=== PATIENT | female | born 1970 | race African-American/Black ===

== ENCOUNTER 2017-08-28 13:19 | Inpatient (IN) | payer BC ==
[2017-08-28] MEDS ORDERED: Ondansetron HCl/PF 4 MG/2 ML Vial ONE (13:51)
[2017-08-28 14:02] LABS: #Eosinphils 0.1 thou/uL (0.0-0.7); #Lymphocytes 2.4 thou/uL (1.20-3.40); #Monocytes 0.5 thou/uL (0.11-0.59); #Neutrophils 5.7 thou/uL (1.40-6.50); %Basophils 0.5 % (0.0-1.0); %Eosinophils 1.6 % (0.0-10.0); %Lymphocytes 27.2 % (21.0-51.0); %Monocytes 6.1 % (0.0-10.0); Mean Platelet Volume 8.1 fL (7.4-10.4); Red Blood Cell (RBC) Count 4.39 mill/uL (4.20-5.40); White Blood Cell (WBC) Count 8.8 thou/uL (4.8-10.8)
[2017-08-28 14:10] LABS: Prothrombin Time 13.1 SEC (12.0-14.7)
[2017-08-28] MEDS ORDERED: ISOVUE-370 76%-LOCM 1 ML ONE (14:11)
[2017-08-28 14:25] LABS: ALT (SGPT) 13 U/L (8-55); AST (SGOT) 12 U/L (5-34); Alkaline Phosphatase 67 U/L (40-150); Anion Gap 16 mmol/L (10-20); BUN (Urea Nitrogen) 14 mg/dL (7.0-18.7); Bilirubin, Total Less than 0.2 mg/dL (0.2-1.2); Calc. Creatinine Clearance 0 mL/min (70-130); Calcium 9.1 mg/dL (7.8-10.44); Carbon Dioxide 19 mmol/L (22-29); Chloride 104 mmol/L (98-107); Estimated GFR-MDRD 65; Globulin 3.7 g/dL (2.4-3.5); Protein, Total 7.2 g/dL (6.0-8.3)
[2017-08-28 14:30] LABS: Troponin I Less than 0.010 ng/mL (< 0.028)
--- NOTE | 2017-08-28 14:34 | CT ---
CT OF BRAIN PERFORMED WITHOUT CONTRAST ENHANCEMENT: History: Syncopal episode. Comparison: 10-29-15 FINDINGS: Ventricular and cisternal system is within normal limits. Decreased attenuation of the periventricul ar white matter was noted on the prior exam. Slightly more prominent focus of decreased attenuation directly adjacent to the right frontal horn anterior to the caudate nucleus region. This appears mor e prominent than on the prior exam and could represent a small subacute infarct. MRI would be helpfu l in further assessment. IMPRESSION: 1. Chronic white matter change. 2. Focus of decreased attenuation adjacent to the right frontal horn. I cannot exclude this represen ting a small acute to subacute infarct. MRI would be helpful in assessment. POS: [facility]
[2017-08-28] MEDS ORDERED: Aspirin 325 MG TAB ONE (15:54)
--- NOTE | 2017-08-28 16:31 | CT ---
EXAM: CT ANGIOGRAM OF THE [place] CT PERFUSION 08/28/17 HISTORY: Patient collapsed but did not hit head. Diabetic patient. Nausea. Hyperglycemia. Loss of consciousne ss. Altered mental status. Evaluate for posterior circulation syndrome. COMPARISON: 09/29/15. CORRELATION: Brain MRI 09/28/15. TECHNIQUE: CT angiogram of the [place] is performed in the axial plane. Sagittal and coronal three dim ensional reformatted images are submitted for interpretation. CT perfusion imaging is performed. FINDINGS: Limited evaluation for subarachnoid blood due to the presence of intra-arterial contrast. Cortical g ray-white matter differentiation is preserved. Ventricles and sulci are patent and symmetric. Chroni c white matter change in the right frontal periventricular white matter. There are hypodensities in the midline of the vaibhav and posterior left cerebellar hemisphere. The kyra whitney lesion is not appreciated on the prior CT or MRI. Indeterminate infarct may be present. Better interrogation with MRI is recommended. Abnormal signal in the anterior right vaibhav/cerebral peduncle in noted on prior MRI. CT ANGIOGRAM: There is symmetric enhancement and luminal diameter of the distal cervical and intracranial internal carotid arteries. There is symmetric enhancement and luminal diameter of the A1 and M1 segments. Sy mmetric enhancement and luminal diameter of the proximal A2 segments and proximal MCA branches. The distal cervical and intracranial vertebral arteries are essentially symmetric. Both PICA artery origins are unremarkable. Both vertebral arteries supply a normal basilar artery. No significant stephanie nosis. There is symmetric signal intensity of the P1 segments. Throughout the [place], no evidence of high grade stenosis or vascular occlusion. CT PERFUSION: There is appropriate blood flow and blood volume. No evidence of increased mean transit time. The ax ial IRS images do not demonstrate any abnormal signal. IMPRESSION: 1. Unremarkable CT angiogram of [place]. No evidence of vascular occlusion or signific ant stenosis. 2. Unremarkable CT perfusion. No evidence of ischemia/at risk brain or a completed infarct. 3. Hypodensity in the midline of the vaibhav, not appreciated on prior CT or prior MRI. MRI if cli nically warranted. The results of the study discussed with Aline Trujillo, 08/28/17 at 3:33 p.m. Code CR POS: [facility]
[2017-08-28] MEDS ORDERED: Dextrose 50% Abboject 50 ML SYRINGE SLOW IVP PRN (17:52)
[2017-08-28] MEDS ORDERED: Dextrose 5% in Water 1,000 ML IV PRN (17:52)
[2017-08-28] MEDS ORDERED: Insulin Regular 300 UNITS/3 ML VIAL SC PRN (17:52)
[2017-08-28] MEDS ORDERED: ALPRAZolam 0.5 MG TAB PO SCH ×2 (18:15→19:45)
[2017-08-28] MEDS ORDERED: Non-Formulary Item 1 EACH (Levemir Flexpen [Levemir Flexpen] 15 UNIT) SC SCH (21:00)
[2017-08-28] MEDS ORDERED: Atorvastatin Calcium 20 MG TAB PO SCH (21:00)
--- NOTE | 2017-08-28 21:22 | HP ---
DATE OF ADMISSION: 08/28/2017 TIME: 1800. HISTORY OF PRESENT ILLNESS: This is a 47-year-old black female, who presents with an altered mental status. The patient has a history of diabetes, hypertension, hyperlipidemia, and noncompliance. I n 09/2015, the patient underwent an infarct of her pontine area of her brain. Prior to that and shira n following that, the patient has rarely has seen her physicians. The patient was relatively stable until early this morning when she developed a headache. This became progressively worse throughout the day and about 11:00 a.m. became severe. At 12:45, she fainted in the classroom and EMS was anibal led. She was talking and answering questions appropriately at that time. However, she states that she has had a persistent headache throughout the day. There is no reported nausea or vomiting. The patient is getting over the case of strep presently on Levaquin. The patient does go to the [facility] for her urgent care needs. She last saw me approximately 6 months ago. She does not complai n of any weakness of her extremities. She has no chest pain at this time nor shortness of breath, n ausea, or vomiting. She has no visual changes. PAST MEDICAL HISTORY: Hypertension, hyperlipidemia, diabetes, history of pontine infarct 09/2015. She also had an echo in 2014 revealing concentric LVH. PAST SURGICAL HISTORY: Include hysterectomy and x2. FAMILY HISTORY: Father at 79, diagnoses of diabetes, hypertension, and CVA. Mother at 67 with colon cancer and maternal grandmother with some unknown cancer. SOCIAL HISTORY: She does not smoke. She does not drink. 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 She is . She has 2 sons. Jeferson is a senior David Pradhan, who attends [employer] majoring in Kinesiology and theatre. MEDICATIONS: Include Levemir 35 units q.12, Lisinopril/HCTZ 20/25 q.a.m., Glucovance 5/500 one p.o. daily, Plavix 75 daily, sertraline 50 mg daily, Victoza 18 mcg every week. ALLERGIES: VICODIN which causes hallucinations. REVIEW OF SYSTEMS: As above. PHYSICAL EXAMINATION: VITAL SIGNS: See ER sheet. GENERAL: In no acute distress at this time. She does complain of a mild headache. HEENT: Pupils equal, reactive. Extraocular movements intact. TM, nose, throat clear. NECK: Supple, no bruits. HEART: Regular rate and rhythm. LUNGS: Clear. ABDOMEN: Soft, nontender. EXTREMITIES: With no edema. NEUROLOGIC: Cranial nerves II through XII appeared intact. Normal sensory, motor bilaterally. DTR s are symmetrical. LABORATORY DATA: CT head and neck and CT angio unremarkable. CT of the brain shows chronic white m atter changes and focus of decreased attenuation in the right frontal horn, cannot exclude subacute infarct. ASSESSMENT: 1. Recurrent pontine infarct. 2. Noncompliance. 3. Diabetes. 4. Hypertension. 5. Hyperlipidemia. 6. History of concentric left ventricular hypertrophy and aortic insufficiency. PLAN: 1. Consult Dr. Patterson. 2. Echocardiogram transthoracic. 3. MRA of the brain. 4. Insulin sliding scale. 5. Resume home medications. 6. A long discussion again about compliance. The patient cannot get to the [facility] for h er routine medical care.
[2017-08-28] MEDS: Insulin Detemir 100 UNITS/ML 15 UNITS in Pre-Filled Syringe 1 EACH SC SCH (21:36)
[2017-08-29] MEDS ORDERED: Acetaminophen 325 MG TAB PO PRN (08:12)
[2017-08-29] MEDS ORDERED: Acetaminophen/Codeine 30-300mg Tablet PO PRN (08:13)
--- NOTE | 2017-08-29 08:58 | PRG ---
DATE OF SERVICE: 08/29/2017 SUBJECTIVE: The patient complains of a persistent headache this morning. No nausea or vomiting. H usband is present. He is not aware that she has not been seeing me in the office. He is quite surp rised. The patient is having trouble ambulating. She is unsteady on her feet and requires assistan ce to the bathroom. OBJECTIVE: VITAL SIGNS: Temperature 97.8, pulse 78, respirations 18, pulse ox 99, blood pressure 196/96, avera ge blood pressure 155/88, morning medications pending. HEENT: Pupils equal, reactive. Extraocular movements intact. HEART: Regular rate and rhythm. LUNGS: Clear. ABDOMEN: Soft. EXTREMITIES: With no edema. Normal rapid alternating movements. Normal jtdupp-yi-osci. May have decreased strength on the left side. NEURO: Patient conversing without difficulty. Answers all questions appropriately. LABORATORY: Electrolytes normal. Blood sugar 234, 135 this morning. Cholesterol 110, triglyceride s 169. ASSESSMENT: 1. Cerebrovascular accident, rule out recurrent pontine infarct. 2. Noncompliance. 3. Weakness/left-sided weakness. 4. Diabetes. 5. Hypertension. 6. Hyperlipidemia. 7. History of concentric left ventricular hypertrophy with aortic insufficiency. PLAN: 1. Await Dr. Patterson's consult. 2. Echocardiogram this morning. Possible Cardiology consult depending on results. 3. MRI of the brain pending. 4. Continue insulin sliding scale. 5. Maintain blood pressures in the 150s/80s range. 6. Long discussion about compliance with who is quite surprised. I do not recommend the pa julissa go to the [facility] for routine care. 7. PT, OT consult. 8. Tylenol and [place] p.r.n. for headache.
[2017-08-29] MEDS ORDERED: Aspirin 325 mg Enteric Coated Tablet PO SCH (09:00)
[2017-08-29] MEDS ORDERED: Lisinopril/Hydrochlorothiazide 20/25 mg Tablet PO SCH (09:00)
[2017-08-29] MEDS ORDERED: Clopidogrel Bisulfate 75 MG TAB PO SCH (09:00)
[2017-08-29] MEDS: Insulin Detemir 100 UNITS/ML 15 UNITS in Pre-Filled Syringe 1 EACH SC SCH (09:07)
[2017-08-29 11:03] VITALS: BMI 38.0
--- NOTE | 2017-08-29 12:57 | MRI ---
MRI OF THE BRAIN WITHOUT CONTRAST: History: Syncope, stroke. Technique: Multiplanar, multisequence MR images were obtained of the brain without contrast. FINDINGS: There is scattered foci of high FLAIR signal in the subcortical and periventricular white matter, li radha secondary to small vessel ischemic disease. There is a similar process also seen in the vaibhav. N o restricted diffusion is seen to suggest an acute infarction. There is no evidence of hydrocephalus , intracranial hemorrhage, or extraaxial fluid collection. The expected flow voids are present. The corpus callosum, pituitary, and craniocervical junction are unremarkable. Calvarium and overlying soft tissues are unremarkable. The visualized paranasal sinuses and mastoid air cells are well aerated. IMPRESSION: Small vessel ischemic disease without acute intracranial abnormality. POS: [facility]
[2017-08-29 16:06] VITALS: BP 167/89; TEMP 98.4
--- NOTE | 2017-08-29 23:10 | DIS ---
DISCHARGE DIAGNOSES: 1. Altered mental status. 2. Acute intractable migraine. 3. Noncompliance. 4. Diabetes. 5. Hypertension. 6. Hyperlipidemia. 7. Morbid obesity. DISCHARGE MEDICATIONS: Aspirin 325 p.o. daily, lisinopril/HCTZ of 20/25 every morning, metoprolol 1 00 p.o. daily, Zoloft 50 daily, amlodipine 5 mg p.o. daily, aspirin 325 p.o. daily, Plavix 75 mg ese ly, Glucovance 5/500 one p.o. every morning, Levemir 15 units every evening, Victoza 1.8 every week. Follow up with Dr. Torey Davey in 1 week. BRIEF HISTORY: This is a 47-year-old black female with a history of diabetes, hypertension, and hyp erlipidemia, who presented with an altered mental status. She was doing well until the morning of a dmission, she developed a headache. This became progressively worse throughout the day, became very severe approximately 11:00 a.m. and at 12:45 p.m., she fainted in the classroom and EMS was [facility]. She regained her consciousness and was talking and answering questions appropriately. She states that she had a persistent headache throughout the day. There was no nausea or vomiting. HOSPITAL COURSE: The patient was placed on an insulin sliding scale. Her medications were resumed. Her blood pressures were monitored. They fluctuated from 140s to 180 over 70s to 90s. Temperatur e 98.4, pulse 86, pulse oximetry is 98. Dr. Curiel was consulted. An MRI was obtained, which was found to be unremarkable for any acute changes. Patient has a long history of noncompliance. Pamela dixon last seen her 6 months previously. She goes to [facility] where there is no copay. However, the y did not do medication adjustments. I strongly encouraged her and herself to see me on a r egular basis. I have instructed him to follow up with me in 1 week. An echocardiogram was repeated at this visit, which was markedly improved from her previous echocardiogram a few years ago. Her e jection fraction is 60% to 65% with a normal right ventricular size, [id number] aortic regurgi tation was noted. Her brain MRI did show small vessel ischemic disease without any acute abnormalit ies. No evidence of acute infarction noted.
--- NOTE | 2017-08-30 01:55 | CON ---
DATE OF CONSULTATION: 08/30/2017 CONSULTING PHYSICIAN: Hospitalist Service. IMPRESSION: 1. Confusional migraine. 2. Diabetes. 3. Hypertension. PLAN: Discharged home on her prior medications. HISTORY OF PRESENT ILLNESS: Ms. Huang is a 47-year-old black female with a past history of hypert ension, diabetes and migraine headaches. She was at work when she started experiencing fairly sever e headache. She apparently lost consciousness briefly and went to the floor. She awoke on the floo r and recalls being transported to the hospital, she felt confused during this interval of time. Sh destiny was given some Tylenol in the emergency room and her headache subsided. She has not had anything quite like this in the past. Her workup since admission includes a normal MRI of the brain without any acute ischemic changes, CTA of the brain, laboratory studies and an echocardiogram. She had justice ewhat elevated blood glucose related to her diabetes, but otherwise everything has been fine. She d enies any other ongoing problems today. PAST MEDICAL HISTORY: As listed above. ALLERGIES: HYDROCODONE. SOCIAL HISTORY: No tobacco or illicit drug use. FAMILY HISTORY: Noncontributory. REVIEW OF SYSTEMS: Otherwise, negative. PHYSICAL EXAMINATION: GENERAL: She is a somewhat overweight, middle-aged woman in no distress. VITAL SIGNS: Have been stable. She is afebrile. HEENT: Pupils are equal and reactive. Conjunctivae clear. NECK: Supple. EXTREMITIES: No cyanosis. NEUROLOGIC: She is alert and appropriate. Her speech is fluent and clear. Her exam is nonfocal. SUMMARY: Given the constellation of symptoms and lack of findings on imaging, I suspect she had a c onfusional migraine. I would be happy to follow up with her in the office.
[2017-08-30 10:22] LABS: U1RNP/snRNP IGG Autoabs 3.6 AI (0.0-0.9)
== END 2017-08-29 17:51 | disposition home or self-care (01) | DRG 103 ==
LOC: ERS 13:19 → 2SE 16:43
PROVIDERS: ADMIT Family Medicine; ATTEND Family Medicine
DX: G43.919 Migraine, unspecified, intractable, without status migrainosus (principal); E66.01 Morbid (severe) obesity due to excess calories; I10 Essential (primary) hypertension; R41.82 Altered mental status, unspecified; R55 Syncope and collapse; Z91.14 Patient's other noncompliance with medication regimen; Z86.73 Personal history of transient ischemic attack (TIA), and cerebral infarction without residual deficits; R53.1 Weakness; E78.5 Hyperlipidemia, unspecified; Z68.37 Body mass index [BMI] 37.0-37.9, adult; E11.9 Type 2 diabetes mellitus without complications; I35.1 Nonrheumatic aortic (valve) insufficiency
CPT/HCPCS: 0042T; 36415; 36416; 70450; 70496; 70551; 80053; 80061; 82553; 82607; 84484; 85025; 85610; 85652; 86038; 86780; 93005; 93306; 96361; 96374; 96375; G8978-GP-CL; G8979-GP-CJ; G8987-GO-CJ; G8988-GO-CH; G8996-GN-CH; G8997-GN-CH; G8998-GN-CH; J1815; J2270; J2405

== ENCOUNTER 2018-10-18 22:27 | Inpatient (IN) | payer BC ==
[2018-10-18 22:57] LABS: #Eosinphils 0.2 thou/uL (0.0-0.7); #Monocytes 0.7 thou/uL (0.11-0.59); #Neutrophils 6.6 thou/uL (1.40-6.50); %Basophils 0.3 % (0.0-1.0); %Eosinophils 1.5 % (0.0-10.0); %Lymphocytes 34.5 % (21.0-51.0); %Monocytes 6.3 % (0.0-10.0); %Neutrophils 57.4 % (42.0-75.0); Hemoglobin 14.6 g/dL (12.0-16.0); Mean Corpuscular HGB CONC 32.7 g/dL (32.0-36.0); Mean Corpuscular Hemoglobin 29.3 pg (27.0-31.0); Mean Corpuscular Volume 89.9 fL (78.0-98.0); Mean Platelet Volume 8.9 fL (7.4-10.4); Platelet Count 304 thou/uL (130-400); Red Blood Cell (RBC) Count 4.99 mill/uL (4.20-5.40); White Blood Cell (WBC) Count 11.4 thou/uL (4.8-10.8)
[2018-10-18] MEDS ORDERED: Diazepam 5 MG TAB ONE (23:05)
[2018-10-18] MEDS ORDERED: Ondansetron PF 4 MG/2 ML Vial ONE (23:05)
[2018-10-18 23:18] LABS: Anion Gap 17 mmol/L (10-20); BUN (Urea Nitrogen) 16 mg/dL (7.0-18.7); Calc. Creatinine Clearance 0 mL/min (70-130); Calcium 9.5 mg/dL (7.8-10.44); Carbon Dioxide 19 mmol/L (22-29); Chloride 103 mmol/L (98-107); Estimated GFR-MDRD 59; Glucose 415 mg/dL (70-105); Potassium 4.3 mmol/L (3.5-5.1); Sodium 135 mmol/L (136-145)
[2018-10-18] MEDS ORDERED: Lorazepam 2 MG/ML VIAL ONE (23:55)
[2018-10-19] MEDS ORDERED: Meclizine HCl 25 MG TAB ONE (00:37)
[2018-10-19] MEDS ORDERED: Diazepam 5 MG TAB PO PRN (03:37)
[2018-10-19] MEDS ORDERED: Ondansetron PF 4 MG/2 ML Vial IVP PRN (03:38)
[2018-10-19] MEDS ORDERED: Sodium Chloride 0.9% 1,000 ML IV SCH (03:38)
[2018-10-19] MEDS ORDERED: Acetaminophen 325 MG TAB PO PRN (03:38)
[2018-10-19] MEDS ORDERED: Ondansetron ODT 4 MG TAB SL PRN (03:38)
[2018-10-19] MEDS: Meclizine HCl 25 MG TAB PO SCH ×2 (05:56→13:36)
[2018-10-19] MEDS ORDERED: Dextrose 50% Abboject 50 ML SYRINGE SLOW IVP PRN (08:19)
[2018-10-19] MEDS ORDERED: Dextrose 5% in Water 1,000 ML IV PRN (08:19)
[2018-10-19] MEDS ORDERED: Enoxaparin Sodium 40 MG/0.4 ML SYRINGE SC SCH (09:00)
[2018-10-19 09:06] LABS: Hemoglobin A1c 13.9 % (4.0-6.0)
[2018-10-19] MEDS: Insulin Glargine 30 UNITS in Pre-Filled Syringe 1 EACH SC SCH (09:40)
[2018-10-19] MEDS: Famotidine 20 MG TAB PO SCH ×2 (09:41→22:02)
[2018-10-19] MEDS: Clopidogrel Bisulfate 75 MG TAB PO SCH (09:41)
[2018-10-19] MEDS: Aspirin 81 mg Enteric Coated Tablet PO SCH (09:41)
[2018-10-19] MEDS: Lisinopril/Hydrochlorothiazide 20/25 mg Tablet PO SCH (09:42)
[2018-10-19] MEDS: Sodium Chloride 0.9% 1,000 ML IV SCH ×2 (09:43→14:37)
--- NOTE | 2018-10-19 10:32 | CT ---
PRELIMINARY REPORT/[facility]/EMERGENTY AFTER-HOURS PROCEDURE CT Head Without Intravenous Contrast CLINICAL HISTORY: 48 years old, female; Signs and symptoms; Dizziness; Patient HX: Er 21; F48 presents to ed with C/O s evere dizziness and nausea onset 1 hr ago. 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 Pt reports being seen in ed 1 week ago for dizziness but reports that it did not feel like this. TECHNIQUE: Axial computed tomography images of the head/brain without intravenous contrast. COMPARISON: No relevant prior studies available. FINDINGS: Normal brain morphology. Subtle small 2 mm hypodensity in the vaibhav seen in image 8. Hypodensities adjacent to the right frontal horn and right cerebellar hemisphere. Small round hypodensity in the left cerebellar hemisphere. Vasquez-white matter differentiation is preserved. No intracranial hemorrhage or hydrocephalus. No mass, mass effect or midline shift. No effacement of the cortical sulci and basal cisterns. Orbits are unremarkable. Paranasal sinuses are clear. Mastoid air cells are clear. No acute fracture. Soft tissues unremarkable. IMPRESSION: 1. Subtle small 2 mm hypodensity in the vaibhav. Differential includes lacunar infarct of indeterminate age versus artifact. 2. Small hypodensities adjacent to the right frontal horn and in the right cerebellar hemisphere like ly sequela of old prior vascular insults. 3. Small round hypodensity in the left cerebellar hemisphere possibly arachnoid granulation. 4. Recommend MRI to evaluate above findings. Thank you for allowing us to participate in the care of your patient. Dictated and Authenticated by: Edouard Ernst MD 10/19/2018 2:37 AM Central Time ([place] & [place]) FINAL REPORT CT BRAIN WITHOUT CONTRAST: Date: 10/19/18 FINDINGS/IMPRESSION: I agree with the preliminary report given by Melissa. Comparison is made with the CT scan of 08/28/17 and MRI of 08/29/17. Findings on today's exam are chr onic. No CT evidence of acute intracranial process is seen. POS: [facility]
[2018-10-19 11:12] LABS: Bilirubin Negative (Negative); Blood, Urine Trace (Negative); Glucose, Urine (Dipstick) >=1000 mg/dL (Negative); Leukocyte Negative (Negative); Nitrite Negative (Negative); Protein, Urine (Dipstick) Negative (Neg-Trace); Urobilinogen 0.2 mg/dL (0.2-1.0)
[2018-10-19 11:13] LABS: Clarity Clear (Clear)
[2018-10-19 11:21] LABS: Bacteria/HPF Rare-Few HPF (None Seen); RBC/HPF 0-3 HPF (0-3); Squamous Epithelial 0-3 HPF (0-3); WBC/HPF 0-3 HPF (0-3)
[2018-10-19 11:22] LABS: Hyaline Casts/LPF NONE SEEN LPF (0-3 Hyaline)
[2018-10-19] MEDS: HumaLOG 300 UNITS/3 ML VIAL SC PRN ×2 (11:35→22:11)
--- NOTE | 2018-10-19 13:52 | HP ---
DATE: 10/19/2018 HISTORY OF PRESENT ILLNESS: This is a 48-year-old black female with a history of diabetes, hypertens ion, hyperlipidemia and noncompliance who presents with dizziness. I last saw this patient in 7. She occasionally goes to the [facility]. She states that her blood sugars generally ru n over 300 on average. Her last check was approximately 2-3 weeks ago. Over the past 2 weeks, she h as complained of increasing nausea and vomiting, it became much worse last night with marked dizzines s. She did not complain of any chest pain or shortness of breath. She ran out of her insulin yester day. She reports no history of fever or other symptoms of cough, congestion or bladder infections. She does have a history of small ischemic vessel disease of her brain. She has been admitted in the past for TIAs. She is well aware of her noncompliance and her issues that are arising from her histo ry of noncompliance. I have discussed with her in the past at length about small vessel ischemic dis ease of her brain. She is well aware of the complications of uncontrolled and noncompliance with her diabetes. PAST MEDICAL HISTORY: Hypertension, hyperlipidemia, diabetes, history of pontine infarct in 09/2015. Echo in 2014 revealed concentric LVH. PAST SURGICAL HISTORY: Include hysterectomy and x2. FAMILY HISTORY: Father 79 with diabetes, hypertension and CVA. Mother with colon cancer. Maternal grandmother with some unknown cancer. SOCIAL HISTORY: She does not smoke. She does not drink. 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 She has 2 sons, Jeferson and Lorne. MEDICATIONS: Include Levemir 35 q.12 hours, lisinopril/hydrochlorothiazide 20/25 q.a.m., Glucovance 5/500 one p.o. daily, Plavix 75 daily, sertraline 50 mg daily, Victoza 18 daily. ALLERGIES: VICODIN. REVIEW OF SYSTEMS: As above. PHYSICAL EXAMINATION: VITAL SIGNS: Temperature 97.9, pulse 105, respiration rate 18, pulse ox 100%, blood pressure 151/80. GENERAL: The patient complains of dizziness. HEENT: Clear. HEART: Regular rate and rhythm. LUNGS: Clear. ABDOMEN: Soft. EXTREMITIES: No edema. NEUROLOGIC: She is morbidly obese. LABORATORY DATA: White count 11.4, H&H 14 and 44. Sodium 135, potassium 4.3, creatinine 1.19, BUN 1 6, glucose . ASSESSMENT: 1. Dizziness. 2. Noncompliance. 3. Uncontrolled diabetes. 4. Hypertension. 5. Hyperlipidemia. 6. History of pontine infarct. 7. History of altered mental status with small vessel ischemic disease noted. PLAN: 1. Discuss compliance again. 2. I informed patient that she needs to come see me in the office and not at the [facility] 3. Resume Levemir, lisinopril, Plavix, sertraline and aspirin. 4. Dietary consult. 5. Insulin sliding scale. 6. We will continue to follow the patient and try to control her blood sugar.
[2018-10-20] MEDS: Insulin Glargine 30 UNITS in Pre-Filled Syringe 1 EACH SC SCH (00:04)
[2018-10-20] MEDS: Sodium Chloride 0.9% 1,000 ML IV SCH ×2 (03:44→17:06)
[2018-10-20 05:57] LABS: #Eosinphils 0.1 thou/uL (0.0-0.7); #Lymphocytes 2.6 thou/uL (1.20-3.40); #Monocytes 0.4 thou/uL (0.11-0.59); #Neutrophils 3.3 thou/uL (1.40-6.50); %Basophils 0.8 % (0.0-1.0); %Eosinophils 1.7 % (0.0-10.0); %Lymphocytes 40.8 % (21.0-51.0); %Monocytes 5.7 % (0.0-10.0); Hemoglobin 13.6 g/dL (12.0-16.0); Mean Corpuscular Hemoglobin 28.1 pg (27.0-31.0); Mean Corpuscular Volume 90.6 fL (78.0-98.0); Mean Platelet Volume 8.7 fL (7.4-10.4); Platelet Count 275 thou/uL (130-400); RBC Distribution Width 12.2 % (11.5-14.5); Red Blood Cell (RBC) Count 4.82 mill/uL (4.20-5.40); White Blood Cell (WBC) Count 6.4 thou/uL (4.8-10.8)
[2018-10-20 06:07] LABS: Anion Gap 11 mmol/L (10-20); BUN (Urea Nitrogen) 10 mg/dL (7.0-18.7); Calc. Creatinine Clearance 132 mL/min (70-130); Calcium 8.7 mg/dL (7.8-10.44); Carbon Dioxide 22 mmol/L (22-29); Chloride 108 mmol/L (98-107); Estimated GFR-MDRD 90; Glucose 154 mg/dL (70-105); Potassium 3.7 mmol/L (3.5-5.1); Sodium 137 mmol/L (136-145)
--- NOTE | 2018-10-20 07:52 | PRG ---
DATE OF SERVICE: 10/20/2018 SUBJECTIVE: No complaints of any chest pain, shortness breath, nausea, vomiting. Her vertigo has re solved. She is feeling much better this morning. OBJECTIVE: VITAL SIGNS: Blood pressure 164/84, temperature 98.8, pulse 64, respirations 16, pulse oximetry 94. HEART: Regular rate and rhythm. LUNGS: Clear. ABDOMEN: Soft. EXTREMITIES: With no edema. LABORATORY DATA: White count 6.4, H and H 13 and 43. Electrolytes normal. Creatinine 0.82, BUN is 10, CO2 is 22, blood sugar 162, 154, 131. Hemoglobin A1c 13.9. ASSESSMENT: 1. Vertigo, resolved. 2. Uncontrolled diabetes. 3. Uncontrolled hypertension. 4. Noncompliance. 5. History of pontine infarct. 6. History of altered mental status with small vessel ischemic disease. PLAN: 1. Discuss compliance. The patient obviously is noncompliant and she does admit she is noncompliant at home. Her blood sugars are well controlled. We will have to decrease her insulin. Her blood pr essure remains elevated, and we will add Coreg 6.25 b.i.d. 2. The patient desiring to go home. However, we want to get her well controlled prior to discharge. Hopefully, we can send her home tomorrow. 3. We had a long discussion about regular sodas. I highly recommend that she stop drinking regular sodas.
[2018-10-20] MEDS ORDERED: Carvedilol 3.125 MG TAB PO SCH (08:00)
[2018-10-20] MEDS: Lisinopril/Hydrochlorothiazide 20/25 mg Tablet PO SCH (08:30)
[2018-10-20] MEDS: Insulin Glargine 25 UNITS in Pre-Filled Syringe 1 EACH SC SCH ×2 (08:30→21:00)
[2018-10-20] MEDS: Carvedilol 3.125 MG TAB PO SCH ×2 (08:30→17:08)
[2018-10-20] MEDS: Clopidogrel Bisulfate 75 MG TAB PO SCH (08:30)
[2018-10-20] MEDS: Famotidine 20 MG TAB PO SCH ×2 (08:30→20:58)
[2018-10-20] MEDS: Aspirin 81 mg Enteric Coated Tablet PO SCH (08:31)
[2018-10-20] MEDS: HumaLOG 300 UNITS/3 ML VIAL SC PRN ×2 (11:53→17:06)
[2018-10-20] MEDS: Ondansetron ODT 4 MG TAB PO PRN (18:23)
[2018-10-20] MEDS ORDERED: cloNIDine 0.1 MG TAB PO PRN (20:40)
[2018-10-21] MEDS: Lisinopril/Hydrochlorothiazide 20/25 mg Tablet PO SCH (08:29)
[2018-10-21] MEDS: Aspirin 81 mg Enteric Coated Tablet PO SCH (08:30)
[2018-10-21] MEDS: Famotidine 20 MG TAB PO SCH ×2 (08:30→21:57)
[2018-10-21] MEDS: Clopidogrel Bisulfate 75 MG TAB PO SCH (08:30)
[2018-10-21] MEDS: Carvedilol 3.125 MG TAB PO SCH ×2 (08:31→16:05)
[2018-10-21] MEDS: Insulin Glargine 25 UNITS in Pre-Filled Syringe 1 EACH SC SCH ×2 (08:31→21:58)
--- NOTE | 2018-10-21 08:43 | PRG ---
DATE OF SERVICE: 10/21/2018 SUBJECTIVE: This morning, the patient is awake and alert. She is complaining of increased left-side d weakness. She has had this in the past. However, she states that it has become worse. She is hav ing trouble ambulating and holding things with her left hand. OBJECTIVE: VITAL SIGNS: Temperature 98.5, pulse 71, respirations 16, pulse ox 97, blood pressure 173/86. HEART: Regular rate and rhythm. LUNGS: Clear. ABDOMEN: Soft. EXTREMITIES: No edema is present. The patient might have slightly increased tone on the left. Diego shira, she has good motor strength. It appears that she has abnormal rapid alternating movements on th e left. ASSESSMENT: 1. Vertigo, resolved. 2. Left-sided weakness. Unsure if this has changed from previously. 3. Uncontrolled hypertension. 4. Uncontrolled diabetes, improved here in the hospital dramatically. With insulin her blood sugars have improved. However, hemoglobin A1c is quite elevated. She is very noncompliant with her diet a nd with her medications at home. 5. Noncompliance. 6. History of pontine infarct. 7. History of altered mental status with small vessel ischemic disease. PLAN: 1. MRI of the head with and without contrast. Rule out any changes. We will consult Neurology to s if any further intervention is necessary. 2. Again, discussed compliance with diet and medications. 3. We will continue to increase blood pressure meds until blood pressure under control. 4. Informed the patient that her prognosis is poor if she continues to be noncompliant. She needs t o see me in the office on a regular basis. I last saw her over 1 year ago. She goes to the [facility] occasionally for colds and coughs.
[2018-10-21] MEDS ORDERED: Amlodipine 5 MG TAB PO SCH (09:00)
[2018-10-21 09:59] LABS: Anion Gap 11 mmol/L (10-20); BUN (Urea Nitrogen) 10 mg/dL (7.0-18.7); Calc. Creatinine Clearance 131 mL/min (70-130); Calcium 8.6 mg/dL (7.8-10.44); Carbon Dioxide 20 mmol/L (22-29); Chloride 107 mmol/L (98-107); Estimated GFR-MDRD 89; Glucose 150 mg/dL (70-105); Potassium 4.2 mmol/L (3.5-5.1); Sodium 134 mmol/L (136-145)
[2018-10-21] MEDS ORDERED: ALPRAZolam 0.5 MG TAB PO SCH ×2 (10:30→15:00)
[2018-10-21] MEDS: Sodium Chloride 0.9% 1,000 ML IV SCH (11:52)
[2018-10-21] MEDS: Ondansetron ODT 4 MG TAB PO PRN ×2 (15:09→21:57)
[2018-10-21] MEDS: HumaLOG 300 UNITS/3 ML VIAL SC PRN (19:18)
--- NOTE | 2018-10-21 19:43 | MRI ---
MRI OF BRAIN WITH AND WITHOUT CONTRAST: 10/21/18 Multiplanar and multisequential imaging of the brain obtained. Postcontrast images obtained. INDICATIONS: Left sided weakness. Correlation made to an MRI of brain 09/28/15. That exam revealed infarct in the brain stem, right kyra s and also revealed extensive microvascular ischemic change. FINDINGS: Ventricles are of normal size and position. Moderately severe chronic white matter ischemic changes a gain noted in both cerebral hemispheres, slightly more prominent near the right frontal horn, similar to the prior study. On diffusion weighted sequence today, there are several foci of restricted diffusion in the left cere bellum involving the left cerebellar hemisphere and involving the left cerebellar peduncle. This woul d indicate acute infarct in the left cerebellum probably PICA distribution. No abnormal enhancement identified. IMPRESSION: 1. Evidence of acute infarct in the left cerebellum. 2. Moderately severe chronic ischemic white matter change. 3. Old brain stem infarct at the level of the vaibhav on the right. POS: [facility]
--- NOTE | 2018-10-21 23:43 | CON ---
DATE OF CONSULTATION: 10/21/2018 CONSULTING PHYSICIAN: Torey Davey M.D. HISTORY OF PRESENT ILLNESS: Ms. Huang came back in this time with complaints of nausea, vomiting, and feeling of left-sided , is how she describes it. Her CT scan showed some chronic changes th at appear unremarkable from a prior study. She was admitted last year with neurologic symptoms and h er workup at that time was unrevealing. On exam at this point, her speech is fluent and clear. Ther e are no cranial nerve asymmetry. She has symmetric antigravity strength in the extremities. There is some questionable dysmetria on the left side, seemed to have a bit of difficulty sitting in a stab le fashion with a tendency to fall to the left. Gait was not tested. Sensation was equal to touch. It is possible she might have suffered a lacunar stroke in the cerebellar region would possibly expla in her symptoms. Given her risk factors, will await the MRI results to make a decision as to any oth er treatment changes.
[2018-10-22] MEDS: Aspirin 81 mg Enteric Coated Tablet PO SCH (09:50)
[2018-10-22] MEDS: Famotidine 20 MG TAB PO SCH ×2 (09:50→21:12)
[2018-10-22] MEDS: Clopidogrel Bisulfate 75 MG TAB PO SCH (09:51)
[2018-10-22] MEDS: Lisinopril/Hydrochlorothiazide 20/25 mg Tablet PO SCH (09:51)
[2018-10-22] MEDS: Carvedilol 3.125 MG TAB PO SCH ×2 (09:51→16:25)
[2018-10-22] MEDS: Insulin Glargine 20 UNITS in Pre-Filled Syringe 1 EACH SC SCH ×2 (09:52→21:12)
[2018-10-22 10:17] LABS: Cardiac Risk 5.1 (Less than 4.5)
--- NOTE | 2018-10-22 11:22 | PRG ---
DATE OF SERVICE: 10/22/2018. HISTORY OF PRESENT ILLNESS: Ms. Huang was seen yesterday for acute onset of nausea, vomiting, and gait instability. MRI of the brain was performed yesterday evening, which showed evidence of an acut e infarct in the left cerebellum as well as some moderately severe chronic white matter ischemic carbone ges with an old brain stem infarct in the vaibhav. She was taking aspirin and Plavix prior to this even t. Given the situation, I would add a statin. There is no need to advance to anticoagulation based on available information. Her prognosis for recovery is quite good, in most cases this will clear up in a matter of a few weeks. She may need some inpatient rehab if she is too unstable for discharge home.
[2018-10-22] MEDS: HumaLOG 300 UNITS/3 ML VIAL SC PRN ×2 (11:49→16:24)
--- NOTE | 2018-10-22 13:45 | PRG ---
DATE OF SERVICE: 10/22/2018 SUBJECTIVE: The patient is resting comfortably in the bed. Minimal activity. Continues to have dif ficulty walking. Complains of left-sided weakness. OBJECTIVE: VITAL SIGNS: Temperature 98.3, pulse 60, respirations 16, pulse ox 97, blood pressure 131/62. HEART: Regular rate and rhythm. LUNGS: Clear. ABDOMEN: Soft. EXTREMITIES: Left leg, left arm weakness. Abnormal rapid alternating movements. LABORATORY DATA: Blood sugar 149, 241, 170, 85. ASSESSMENT: 1. Acute infarct of the left cerebellum. 2. Severe chronic ischemic white matter changes in the brain. 3. 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 4. Uncontrolled hypertension, controlled at this time. 5. Uncontrolled diabetes. 6. Noncompliance. PLAN: 1. I have had my daily discussion with her about the importance of compliance. I have told her that it is critical that she come and sees me in the office on a regular basis. I last saw her over 1 ye ar ago. She is very noncompliant with her medications. Her blood sugars average 300-400 at home. H er present situation is totally avoidable. 2. We will start the process of [facility] evaluation. Hopefully, we can make arrangements fo r the holidays. 3. We will continue to titrate her medications. Her diabetes and her blood pressure are markedly im proved since admission. 4. Again if she remains noncompliant, her prognosis is very poor.
[2018-10-22] MEDS: Ondansetron ODT 4 MG TAB PO PRN (21:12)
[2018-10-22] MEDS: Simvastatin 40 MG TAB PO SCH (21:12)
--- NOTE | 2018-10-23 08:12 | PRG ---
DATE OF SERVICE: 10/23/2018 SUBJECTIVE: The patient remains stable today. She is still having difficulty walking and controllin g her left arm. Insurance authorization is pending for transfer to [facility]. OBJECTIVE: VITAL SIGNS: Temperature 98.8, pulse 73, respirations 18, pulse ox 98, blood pressure 136/84. HEART: Regular rate and rhythm. LUNGS: Clear. ABDOMEN: Soft. NEURO: Unchanged. LABORATORY DATA: Blood sugars 230, 184, 127; cholesterol 222; triglycerides 143. ASSESSMENT: 1. Acute infarct of the left cerebellum. 2. Severe chronic ischemic white matter changes of the brain. 3. Old brain stem infarct to the level of the vaibhav on the right. 4. Uncontrolled hypertension, stable. 5. Uncontrolled diabetes, stable. 6. Noncompliance. PLAN: 1. Simvastatin was started. 2. Maintain insulin at Lantus 20 q.12 hours. 3. Continue present antihypertensives. 4. Continue inpatient physical therapy and await transfer to [facility].
[2018-10-23] MEDS: Insulin Glargine 20 UNITS in Pre-Filled Syringe 1 EACH SC SCH ×2 (10:37→20:27)
[2018-10-23] MEDS: Famotidine 20 MG TAB PO SCH ×2 (10:38→20:26)
[2018-10-23] MEDS: Aspirin 81 mg Enteric Coated Tablet PO SCH (10:38)
[2018-10-23] MEDS: Carvedilol 3.125 MG TAB PO SCH ×2 (10:38→18:43)
[2018-10-23] MEDS: Clopidogrel Bisulfate 75 MG TAB PO SCH (10:38)
[2018-10-23] MEDS: Lisinopril/Hydrochlorothiazide 20/25 mg Tablet PO SCH (10:39)
[2018-10-23] MEDS: HumaLOG 300 UNITS/3 ML VIAL SC PRN ×2 (12:11→17:28)
[2018-10-23] MEDS: Ondansetron ODT 4 MG TAB PO PRN ×2 (12:22→18:43)
[2018-10-23] MEDS: Simvastatin 40 MG TAB PO SCH (20:27)
[2018-10-24] MEDS: HumaLOG 300 UNITS/3 ML VIAL SC PRN ×3 (05:44→17:08)
[2018-10-24] MEDS: Ondansetron ODT 4 MG TAB PO PRN ×2 (06:38→14:06)
[2018-10-24] MEDS ORDERED: Sodium Chloride 0.9% 500 ML IV SCH (08:00)
--- NOTE | 2018-10-24 09:00 | PRG ---
DATE OF SERVICE: 10/24/2018 SUBJECTIVE: The patient is having a bout of emesis and nausea this morning. This usually occurs aft er insulin. She does not complain of any headache or chest pain. She simply complains of dizziness and nausea. OBJECTIVE: VITAL SIGNS: Temperature 98.4, pulse 61, respirations 16, pulse ox 99, blood pressure 130/68. HEART: Regular rate and rhythm. LUNGS: Clear. ABDOMEN: Soft. LABORATORY DATA: Blood sugar 182, 177, 200. ASSESSMENT: 1. Vertigo. 2. Acute infarct to the left cerebellum. 3. Severe chronic ischemic white matter changes of the brain. 4. Old brain stem infarct to the level of the vaibhav on the right. 4. Uncontrolled hypertension, well controlled at this time. 5. Uncontrolled diabetes, much improved. 6. Noncompliance. PLAN: 1. We will hydrate and give Phenergan for nausea. 2. Planning to transfer to [facility] when able and insurance approves. 3. We will maintain current blood pressure regimen and diabetes regimen at this time.
[2018-10-24] MEDS: Promethazine HCl 25 MG/ML VIAL IM PRN ×2 (09:09→20:33)
[2018-10-24] MEDS: Famotidine 20 MG TAB PO SCH ×2 (11:16→20:23)
[2018-10-24] MEDS: Clopidogrel Bisulfate 75 MG TAB PO SCH (11:17)
[2018-10-24] MEDS: Carvedilol 3.125 MG TAB PO SCH ×2 (11:17→17:07)
[2018-10-24] MEDS: Lisinopril/Hydrochlorothiazide 20/25 mg Tablet PO SCH (11:17)
[2018-10-24] MEDS: Aspirin 81 mg Enteric Coated Tablet PO SCH (11:18)
[2018-10-24] MEDS: Insulin Glargine 20 UNITS in Pre-Filled Syringe 1 EACH SC SCH ×2 (11:18→20:30)
[2018-10-24] MEDS: Simvastatin 40 MG TAB PO SCH (20:23)
[2018-10-25] MEDS: Insulin Glargine 20 UNITS in Pre-Filled Syringe 1 EACH SC SCH ×2 (09:42→21:12)
[2018-10-25] MEDS: Clopidogrel Bisulfate 75 MG TAB PO SCH (09:43)
[2018-10-25] MEDS: Lisinopril/Hydrochlorothiazide 20/25 mg Tablet PO SCH (09:43)
[2018-10-25] MEDS: Famotidine 20 MG TAB PO SCH ×2 (09:43→21:08)
[2018-10-25] MEDS: Aspirin 81 mg Enteric Coated Tablet PO SCH (09:43)
[2018-10-25] MEDS: Carvedilol 3.125 MG TAB PO SCH ×2 (09:44→17:45)
[2018-10-25] MEDS: HumaLOG 300 UNITS/3 ML VIAL SC PRN ×2 (14:01→17:52)
--- NOTE | 2018-10-25 15:37 | PRG ---
DATE OF SERVICE: 10/25/2018 HISTORY OF PRESENT ILLNESS: The patient is awaiting placement at [facility] for further rehabilitat ion regarding acute left cerebral CVA with history of right remote vaibhav CVA. The patient verbally re ports left-sided weakness, but largely gait instability being her major issue, she is able to speak w ithout difficulty and tolerate diet without choking, has no acute complaints. Nursing staff has no a cute events. PHYSICAL EXAMINATION: VITAL SIGNS: Temperature of 98.4, pulse of 67, respiratory rate of 16, oxygen saturation of 98% on r oom air, blood pressure 106/51, blood glucose range 109 to 265 last 24 hours. GENERAL: The patient is alert and oriented, no acute distress. HEENT: Normocephalic, atraumatic. Extraocular movements are intact. Sclerae are clear. Oral mucos a is moist. NECK: Supple. HEART: Regular rate and rhythm. No murmurs auscultated. LUNGS: Clear to auscultation bilaterally. No rubs or wheezes. ABDOMEN: Soft, nontender, positive bowel sounds throughout, protuberant. EXTREMITIES: Lower extremities without cyanosis or edema. Dorsalis pedis pulses 2+ intact. Strengt h 5/5 upper and lower extremities, extremely minorly less so to the left side. I did not attempt to ambulate the patient, but she still gets the dizziness per report. ASSESSMENT AND PLAN: Left-sided cerebrovascular accident, hypertension, diabetes type 2, continuing sliding scale insulin checks along with continuation of patient's lisinopril and hydrochlorothiazide for blood pressure control. Patient is on aspirin, Plavix, beta gabriel, statin, DEE inhibitor given her CVA, is covered for GI prophylaxis with famotidine 20 mg b.i.d., continuing to work with [facility]. Pending discharge to inpatient rehab, likely on Saturday since no approval came on Saturday. We will continue to follow over the weekend.
[2018-10-25] MEDS: Simvastatin 40 MG TAB PO SCH (21:08)
[2018-10-25] MEDS: Promethazine HCl 25 MG/ML VIAL IM PRN (21:09)
[2018-10-26] MEDS: HumaLOG 300 UNITS/3 ML VIAL SC PRN ×3 (06:18→20:45)
[2018-10-26] MEDS: Lisinopril/Hydrochlorothiazide 20/25 mg Tablet PO SCH (09:04)
[2018-10-26] MEDS: Carvedilol 3.125 MG TAB PO SCH ×2 (09:04→17:27)
[2018-10-26] MEDS: Clopidogrel Bisulfate 75 MG TAB PO SCH (09:05)
[2018-10-26] MEDS: Aspirin 81 mg Enteric Coated Tablet PO SCH (09:05)
[2018-10-26] MEDS: Famotidine 20 MG TAB PO SCH ×2 (09:05→20:36)
[2018-10-26] MEDS: Insulin Glargine 20 UNITS in Pre-Filled Syringe 1 EACH SC SCH ×2 (09:05→20:45)
--- NOTE | 2018-10-26 13:54 | PRG ---
DATE OF SERVICE: 10/26/2018 HISTORY OF PRESENT ILLNESS: The patient remains awaiting placement to inpatient rehabilitation. No authorization from insurance has come so far, will likely not happen until Saturday. The patient crow cabreraed understanding regarding this waiting. Continues to work with nursing staff and therapy staff f or rehabilitation. The patient is currently compliant with medications, no acute complaints. OBJECTIVE: VITAL SIGNS: Temperature of 99.4, pulse of 78, respirations 20, oxygen saturation 96% on room air, b lood pressure 142/80. Blood glucose 209-109 in the last 24 hours. GENERAL: The patient is alert and oriented, no acute distress. HEENT: Normocephalic, atraumatic. Extraocular movements are intact. Sclerae are white. Pupils are equal, round, reactive to light and accommodate. NECK: Supple. HEART: Regular rate and rhythm. No murmurs auscultated. LUNGS: Clear to auscultation bilaterally. No rubs or wheezes. ABDOMEN: Soft, nontender, positive bowel sounds throughout. EXTREMITIES: Lower extremities without cyanosis or edema. The patient moving all extremities equall y. 2+ reflexes upper and lower bilaterally. NEUROLOGIC: The patient is alert and oriented x3, no focal speech changes. ASSESSMENT AND PLAN: 1. Left cerebrovascular accident cerebellum with a remote right pontine cerebrovascular accide nt on MRI. 2. Hypertension and diabetes type 2, continuing current management with baby aspirin, Coreg, clonidi ne p.r.n., Plavix, Pepcid, DEE inhibitor, hydrochlorothiazide, and sliding scale insulin checks . Await placement likely tomorrow.
[2018-10-26] MEDS: Simvastatin 40 MG TAB PO SCH (20:36)
[2018-10-27] MEDS: HumaLOG 300 UNITS/3 ML VIAL SC PRN ×3 (05:15→18:14)
--- NOTE | 2018-10-27 08:12 | PRG ---
DATE OF SERVICE: 10/27/2018 SUBJECTIVE: The patient is feeling much better this morning. She is ambulating with a walker. She has not attempted to walk without the walker. OBJECTIVE: VITAL SIGNS: Temperature 99.6, pulse 81, respirations 16, pulse ox 97, blood pressure 133/69. HEART: Regular rate and rhythm. LUNGS: Clear. ABDOMEN: Soft. EXTREMITIES: Still with abnormal rapid alternating movements and unsteady gait. LABORATORY: Blood sugar 134, 293, 156. ASSESSMENT: 1. Vertigo. 2. Acute infarct to the left cerebellum. 3. Old brain stem infarct to the level of the vaibhav on the right. 4. Severe chronic ischemic white matter changes of the brain. 5. Uncontrolled hypertension, under control now. 6. Uncontrolled diabetes, much improved. 7. Noncompliance. PLAN: 1. Hopefully, will be transferred to [facility] today. 2. Continue all present meds. 3. I had a long discussion with the patient's and the patient about the importance of compli ance with diet and exercise. I told them the severity of their findings on the MRI. If patient abdulkadir ins noncompliant her prognosis will be poor. DISCHARGE MEDICATIONS: Will include aspirin 81 mg daily, Coreg 6.25 p.o. b.i.d., clonidine 0.1 p.o. b.i.d. p.r.n., Plavix 75 mg daily, Lantus 20 units subcu b.i.d., lisinopril/HCTZ 20/25 q.a.m., Zoloft 50 daily, and simvastatin 40 daily.
[2018-10-27] MEDS: Aspirin 81 mg Enteric Coated Tablet PO SCH (08:55)
[2018-10-27] MEDS: Carvedilol 3.125 MG TAB PO SCH ×2 (08:55→18:14)
[2018-10-27] MEDS: Famotidine 20 MG TAB PO SCH ×2 (08:56→21:28)
[2018-10-27] MEDS: Clopidogrel Bisulfate 75 MG TAB PO SCH (08:56)
[2018-10-27] MEDS: Insulin Glargine 20 UNITS in Pre-Filled Syringe 1 EACH SC SCH ×2 (08:56→21:28)
[2018-10-27] MEDS: Lisinopril/Hydrochlorothiazide 20/25 mg Tablet PO SCH (08:56)
[2018-10-27] MEDS: Simvastatin 40 MG TAB PO SCH (21:28)
--- NOTE | 2018-10-28 08:23 | PRG ---
DATE OF SERVICE: 10/28/2018 SUBJECTIVE: The patient is doing well this morning. Her ambulation is slowly improving. However, s he still requires the use of a walker and assistance. OBJECTIVE: VITAL SIGNS: Temperature 98.3, pulse 76, respirations 18, pulse ox 99, blood pressure 133/76. HEART: Regular rate and rhythm. LUNGS: Clear. ABDOMEN: Soft. LABORATORY DATA: Blood sugar 222, 272, 170. ASSESSMENT: 1. Vertigo, resolved. 2. Acute infarct in the left cerebellum. 3. Old brain stem infarct to the level of the vaibhav on the right. 4. Severe ischemic white matter changes of the brain. 5. Uncontrolled hypertension, stable. 6. Uncontrolled diabetes, stable. 7. Noncompliance. PLAN: 1. Still waiting transfer to [facility]. 2. We will increase insulin slightly to 23 units of Lantus q.12. 3. We will recheck routine CBC and BMP today. 4. I instructed the patient that I will continue to see her if she comes to my clinic. I told her t hat I cannot treat her if she does not come to my office. I have informed that her prognosis will be very poor if she does not comply with medical treatment. I have explained to her the severity of he r results on the MRI. She is well aware of this. I plan to follow her up immediately after dischar karissa from [facility]. DISCHARGE MEDICATIONS: Will include aspirin 81 mg daily, Coreg 6.25 p.o. b.i.d., Plavix 75 mg daily, Lantus 23 units subcu b.i.d., lisinopril/HCTZ 20/25 q.a.m., Zoloft 50 daily, and simvastatin 40 michael y.
[2018-10-28 09:11] LABS: #Eosinphils 0.1 thou/uL (0.0-0.7); #Lymphocytes 2.6 thou/uL (1.20-3.40); #Monocytes 0.6 thou/uL (0.11-0.59); #Neutrophils 4.2 thou/uL (1.40-6.50); %Basophils 0.2 % (0.0-1.0); %Eosinophils 1.6 % (0.0-10.0); %Lymphocytes 34.9 % (21.0-51.0); %Monocytes 7.4 % (0.0-10.0); %Neutrophils 55.9 % (42.0-75.0); Hemoglobin 14.8 g/dL (12.0-16.0); Mean Corpuscular Hemoglobin 28.9 pg (27.0-31.0); Mean Corpuscular Volume 90.2 fL (78.0-98.0); Mean Platelet Volume 8.2 fL (7.4-10.4); Platelet Count 319 thou/uL (130-400); RBC Distribution Width 12.1 % (11.5-14.5); Red Blood Cell (RBC) Count 5.13 mill/uL (4.20-5.40); White Blood Cell (WBC) Count 7.5 thou/uL (4.8-10.8)
[2018-10-28 09:19] LABS: Anion Gap 11 mmol/L (10-20); BUN (Urea Nitrogen) 15 mg/dL (7.0-18.7); Calc. Creatinine Clearance 119 mL/min (70-130); Calcium 9.1 mg/dL (7.8-10.44); Carbon Dioxide 21 mmol/L (22-29); Chloride 104 mmol/L (98-107); Estimated GFR-MDRD 81; Glucose 189 mg/dL (70-105); Sodium 132 mmol/L (136-145)
[2018-10-28] MEDS: Carvedilol 3.125 MG TAB PO SCH ×2 (10:54→18:36)
[2018-10-28] MEDS: Clopidogrel Bisulfate 75 MG TAB PO SCH (10:54)
[2018-10-28] MEDS: Famotidine 20 MG TAB PO SCH ×2 (10:55→22:47)
[2018-10-28] MEDS: Aspirin 81 mg Enteric Coated Tablet PO SCH (10:55)
[2018-10-28] MEDS: Lisinopril/Hydrochlorothiazide 20/25 mg Tablet PO SCH (10:55)
[2018-10-28] MEDS: Insulin Glargine 23 UNITS in Pre-Filled Syringe 1 EACH SC SCH ×2 (10:56→22:47)
--- NOTE | 2018-10-28 13:26 | PQF ---
DATE: 10-28-18 ATTN: DR. JAZMIN NELSON Please exercise your independent, professional judgment in responding to the clarification form. Clinical indicators are provided on the bottom of this form for your review Please check appropriate box(s): [ ] Hemiplegia Specify: [ ] Non dominant side [ ] Dominant side Status: [ ] Complete [ ] Incomplete [ ] Paraplegia Specify: [ ] Non dominant side [ ] Dominant side Status: [ ] Complete [ ] Incomplete [ ] Weakness due to Acute Infarct of the Left Cerebellum (please specify anatomical area) Specify: [ ] Non dominant side [ ] Dominant side [ ] Other diagnosis [ ] Unable to determine In addition, please specify: Present on Admission (POA): [ ] Yes [ ] No [ ] Unable to determine CLINICAL INDICATORS - SIGNS / SYMPTOMS / LABS CONSULT NOTE DINESH RUSH: THERE IS SOME QUESTIONABLE DYSMETRIA ON THE LEFT SIDE, SEEMED TO HAVE A BIT OF DIFFICULTY SITTING IN A STABLE FASHION WITH A TENDENCY TO FALL TO THE LEFT. PN DR. NELSON 10-22-18: CONTINUES TO HAVE DIFFICULTY WALKING, COMPLAINS FO L SIDED WEAKNESS. L LEG, LEFT ARM WEAKNESS. ACUTE INFARCT OF THE LEFT CEREBELLUM. RISK FACTORS: H&P: HX OF DM, HTN, HYPERLIPIDEMIA AND NONCOMPLIANCE THAT PRESENTS WITH DIZZINESS. PN DR. NELSON 10-22-18: ACUTE INFARCT OF THE LEFT CEREBELLUM. TREATMENT: CONSULT NEURO 10-21-18 PT CONSULT: 10-21-18 (This form is maintained as a part of the permanent medical record) 2014 [email or web address]. All Rights Reserved [email or web address] [email or web address] Office: [phone] [facility] MED[facility] CENTERBrennen
[2018-10-28] MEDS: HumaLOG 300 UNITS/3 ML VIAL SC PRN ×3 (13:41→23:56)
[2018-10-28] MEDS: Simvastatin 40 MG TAB PO SCH (22:46)
[2018-10-29] MEDS: Aspirin 81 mg Enteric Coated Tablet PO SCH (09:28)
[2018-10-29] MEDS: Lisinopril/Hydrochlorothiazide 20/25 mg Tablet PO SCH (09:28)
[2018-10-29] MEDS: Carvedilol 3.125 MG TAB PO SCH ×2 (09:28→17:12)
[2018-10-29] MEDS: Famotidine 20 MG TAB PO SCH ×2 (09:29→22:11)
[2018-10-29] MEDS: Clopidogrel Bisulfate 75 MG TAB PO SCH (09:29)
[2018-10-29] MEDS: Insulin Glargine 23 UNITS in Pre-Filled Syringe 1 EACH SC SCH ×2 (09:34→22:11)
--- NOTE | 2018-10-29 09:53 | CT ---
CT BRAIN NONCONTRAST: DATE: 10-29-18 TIME: 8:06 A.M. HISTORY: 48-year-old female status post acute head trauma from fall. COMPARISON: CT 10-19-18 and MRI 10-21-18. FINDINGS: No evidence of acute calvarial fracture. No evidence of acute intraaxial or extraaxial hemorrhage. No mass effect, midline shift, or extraaxial fluid collection. Ventricles are normal in size and config uration. Old lacunar infarctions of right side of the vaibhav and right cerebral peduncle of the midbrain, as pre viously demonstrated. Subacute infarctions of the left middle cerebellar peduncle (brachium pontis) and left cerebellar hem isphere that were acute on MRI of 10-21-18, but were not visible on the CT of 10-19-18. Moderate chronic ischemic white matter changes, especially in the bilateral frontal cerebral white ma tter. IMPRESSION: 1. No acute intracranial hemorrhage or mass effect. 2. Subacute infarctions of the left cerebellum and left brachium pontis. 3. Old lacunar infarctions at right brainstem. 4. Moderate chronic ischemic white matter changes due to microvascular atherosclerosis. JODIE Fonseca POS: CHRISTINA
--- NOTE | 2018-10-29 09:55 | CT ---
CT MAXILLOFACIAL NONCONTRAST: DATE: 10-29-18 TIME: 8:08 A.M. History: 48-year-old female status post acute facial trauma due to fall. FINDINGS: The orbits are clear. There is no hematoma in the superficial or deep spaces of the face and head. No fracture. No airfluid levels in the paranasal sinuses. IMPRESSION: No fracture. POS: SONDRA
[2018-10-29] MEDS: HumaLOG 300 UNITS/3 ML VIAL SC PRN (11:48)
--- NOTE | 2018-10-29 12:16 | CON ---
DATE OF CONSULTATION: 10/29/2018 SUBJECTIVE: The patient is in good spirits. She is awaiting transfer to rehab. Continues to work with physical therapy with the use of walker. OBJECTIVE: VITAL SIGNS: Temperature 98.2, pulse 72, respirations 17, pulse ox 99%, blood pressure 108/80. HEART: Regular rate and rhythm. LUNGS: Clear. ABDOMEN: Soft. LABORATORY DATA: White count 7.5, H and H 14 and 46. Sodium 132; potassium 4.0; creatinine ; BUN 15; blood sugar 233, 156, 130. ASSESSMENT: 1. resolved. 2. Acute infarct in the left cerebellum. 3. Old brainstem infarct at the level of vaibhav in the right. 4. Severe ischemic white matter change of the brain. 5. Left hemiplegia of the non-dominant side. 6. Hypertension, stable. 7. Diabetes, stable. 8. Noncompliance. PLAN: 1. Hopefully, can be transferred to the [facility] today. 2. Continue present insulin schedule. 3. Continue diet and exercise. 4. We will follow up in the office after rehab. Job ID: [id number]
[2018-10-29] MEDS: Acetaminophen 325 MG TAB PO PRN ×2 (17:13→22:10)
[2018-10-29] MEDS: Promethazine HCl 25 MG/ML VIAL IM PRN (18:06)
[2018-10-29] MEDS: Simvastatin 40 MG TAB PO SCH (22:11)
[2018-10-30] MEDS: Carvedilol 3.125 MG TAB PO SCH (08:33)
[2018-10-30] MEDS: Insulin Glargine 23 UNITS in Pre-Filled Syringe 1 EACH SC SCH (08:33)
[2018-10-30] MEDS: Lisinopril/Hydrochlorothiazide 20/25 mg Tablet PO SCH (08:33)
[2018-10-30] MEDS: Clopidogrel Bisulfate 75 MG TAB PO SCH (08:33)
[2018-10-30] MEDS: Aspirin 81 mg Enteric Coated Tablet PO SCH (08:33)
[2018-10-30] MEDS: Famotidine 20 MG TAB PO SCH (08:33)
[2018-10-30 11:47] VITALS: BP 115/72; TEMP 98.6
--- NOTE | 2018-11-01 14:26 | EKG ---
Test Reason : Blood Pressure : / mmHG Vent. Rate : 053 BPM Atrial Rate : 053 BPM P-R Int : 178 ms QRS Dur : 104 ms QT Int : 514 ms P-R-T Axes : 040 040 011 degrees QTc Int : 482 ms Sinus bradycardia with sinus arrhythmia Prolonged QT Abnormal ECG Confirmed by TRICIA ESCOBAR MD ([id number]), development editor POLI CARTER ([id number]) on 11/01/2018 2:26:19 PM Referred By: Confirmed By:TRICIA ESCOBAR MD
== END 2018-10-30 12:57 | DRG 65 ==
LOC: ERS 22:27 → 2SE 10-19 02:09 → OBSVTOIN 10-22 08:19
PROVIDERS: ADMIT Family Medicine; ATTEND Family Medicine
DX: I63.342 Cerebral infarction due to thrombosis of left cerebellar artery (principal); G81.94 Hemiplegia, unspecified affecting left nondominant side; Z91.14 Patient's other noncompliance with medication regimen; E11.65 Type 2 diabetes mellitus with hyperglycemia; Z79.4 Long term (current) use of insulin; I10 Essential (primary) hypertension; E78.5 Hyperlipidemia, unspecified; I25.2 Old myocardial infarction; E66.01 Morbid (severe) obesity due to excess calories; Z68.36 Body mass index [BMI] 36.0-36.9, adult
CPT/HCPCS: 36415; 36416; 70450; 70486; 70553; 80048; 80061; 81001; 83036; 85025; 87086; 90471; 90732; 93005; 96361; 96374; 96375; G0009; G8978-GP-CL; G8979-GP-CI; G8987-GO-CJ; G8988-GO-CI; G8996-GN-CH; G8997-GN-CH; G8998-GN-CH; J2060; J2405; J2550; Q0162

== ENCOUNTER 2019-06-12 15:12 | Outpatient (CLI) | payer OTHER ==
--- NOTE | 2019-06-12 16:01 | MMO ---
Bilateral MAMMO Bilat Screen DDI+ISABEL. CLINICAL HISTORY: Patient is 49 years old and is seen for screening. The patient has no family history of breast cancer. The patient has no personal history of cancer. VIEWS: The views performed were: bilateral craniocaudal with tomosynthesis; bilateral mediolateral oblique; and bilateral mediolateral oblique with tomosynthesis. FILMS COMPARED: The present examination has been compared to a prior imaging study performed at [facility] on 05/22/2012. MAMMOGRAM FINDINGS: There are scattered fibroglandular densities. There are no suspicious masses, suspicious calcifications, or new areas of architectural distortion. IMPRESSION: THERE IS NO MAMMOGRAPHIC EVIDENCE OF MALIGNANCY. A ROUTINE FOLLOW-UP MAMMOGRAM IN 1 YEAR IS RECOMMENDED. THE RESULTS OF THIS EXAM WERE SENT TO THE PATIENT. ACR BI-RADS Category 1 - Negative MAMMOGRAPHY NOTE: 1. A negative mammogram report should not delay a biopsy if a dominant of clinically suspicious mass is present. 2. Approximately 10% to 15% of breast cancers are not detected by mammography. 3. Adenosis and dense breasts may obscure an underlying neoplasm. Reported by: WOLFGANG BOLAÑOS MD Electonically Signed: [id number]
== END 2019-06-12 15:13 | disposition home or self-care (01) ==
LOC: BICMAMMO 15:12
PROVIDERS: ATTEND Family Medicine
DX: Z12.31 Encounter for screening mammogram for malignant neoplasm of breast (principal); N64.89 Other specified disorders of breast
CPT/HCPCS: 77063; 77067

== ENCOUNTER 2019-06-19 13:03 | Outpatient (CLI) | payer OTHER ==
--- NOTE | 2019-06-19 14:13 | MMO ---
Left Breast MAMMO Unilat Diag DDI LT+ISABEL. CLINICAL HISTORY: Patient is 49 years old and is seen for additional evaluation requested from prior study. The patient has no family history of breast cancer. The patient has no personal history of cancer. VIEWS: The views performed were: left mediolateral with tomosynthesis and left exaggerated craniocaudal spot compression with tomosynthesis. FILMS COMPARED: The present examination has been compared to prior imaging studies performed at [facility] on 05/22/2012, 06/12/2019 and 06/19/2019. MAMMOGRAM FINDINGS: There are scattered fibroglandular densities. There are no suspicious masses, suspicious calcifications, or new areas of architectural distortion. IMPRESSION: THERE IS NO MAMMOGRAPHIC EVIDENCE OF MALIGNANCY. THE QUESTIONABLE ASYMMETRIC DENSITY DID NOT PERSIST WITH THE ADDITIONAL VIEWS. NEGATIVE ULTRASOUND. STABLE FROM PRIOR STUDIES. A ROUTINE FOLLOW-UP MAMMOGRAM IN 1 YEAR IS RECOMMENDED. THE RESULTS OF THIS EXAM WERE SENT TO THE PATIENT. ACR BI-RADS Category 2 - Benign finding MAMMOGRAPHY NOTE: 1. A negative mammogram report should not delay a biopsy if a dominant of clinically suspicious mass is present. 2. Approximately 10% to 15% of breast cancers are not detected by mammography. 3. Adenosis and dense breasts may obscure an underlying neoplasm. Reported by: SHAI MEJIA MD Electonically Signed: [id number]
--- NOTE | 2019-06-19 14:22 | ULT ---
LIMITED LEFT BREAST ULTRASOUND: HISTORY: Palpable finding at approximately 1 o'clock in the left breast. FINDINGS: No solid or cystic mass or other significant abnormal ultrasound finding or mammographic finding to a ccount for a palpable finding in the left breast, between the 1 and 2 o'clock position. IMPRESSION: No solid or cystic mass in the left breast to account for the palpable finding. BI-RADS category 2-B enign findings. Continued annual follow-up mammograms. If the patient develops any new palpable finding prior to the next mammogram, a follow-up ultrasound study should be considered. POS: OFF
== END 2019-06-19 13:04 | disposition home or self-care (01) ==
LOC: BICMAMMO 13:03
PROVIDERS: ATTEND Family Medicine
DX: R92.2 Inconclusive mammogram (principal)
CPT/HCPCS: G0279

== ENCOUNTER 2019-07-07 18:59 | Emergency (ER) | payer OTHER ==
--- NOTE | 2019-07-07 19:51 | CT ---
Head CT without contrast 07/07/2019: COMPARISON: 10/29/2018 HISTORY: Fall, trauma, pain TECHNIQUE: Axial CT imaging at 5 mm intervals from vertex through skull base without contrast FINDINGS: Stable periventricular hypodensity noted adjacent to the right frontal horn. Stable volume loss/encephalomalacia within the left cerebellar hemisphere. Imaged paranasal sinuses and mastoid air cells appear well aerated. No displaced calvarial fracture. No intracranial hemorrhage, midline s hift, or mass effect. Stable periventricular hypodensity suggesting small vessel disease. Subsegmental focus of hypodensity in the right cerebellar hemisphere suggest prior insult as well, st able. IMPRESSION: Chronic findings as detailed above. No intracranial hemorrhage or displaced calvarial fra cture.
[2019-07-07] MEDS ORDERED: Prochlorperazine 10 MG/2 ML VIAL IVP SCH (20:15)
[2019-07-07] MEDS ORDERED: diphenhydrAMINE 50 MG/ML VIAL ONE (20:15)
[2019-07-07 20:20] LABS: #Eosinphils 0.2 thou/uL (0.0-0.7); #Lymphocytes 2.9 thou/uL (1.20-3.40); #Monocytes 0.6 thou/uL (0.11-0.59); #Neutrophils 5.7 thou/uL (1.40-6.50); %Basophils 0.1 % (0.0-1.0); %Eosinophils 1.7 % (0.0-10.0); %Monocytes 6.6 % (0.0-10.0); %Neutrophils 60.5 % (42.0-75.0); Hemoglobin 12.1 g/dL (12.0-16.0); Mean Corpuscular HGB CONC 32.6 g/dL (32.0-36.0); Mean Corpuscular Hemoglobin 29.6 pg (27.0-31.0); Mean Corpuscular Volume 90.6 fL (78.0-98.0); Mean Platelet Volume 8.1 fL (7.4-10.4); Platelet Count 337 thou/uL (130-400); RBC Distribution Width 12.3 % (11.5-14.5); Red Blood Cell (RBC) Count 4.08 mill/uL (4.20-5.40); White Blood Cell (WBC) Count 9.5 thou/uL (4.8-10.8)
[2019-07-07 20:25] LABS: INR-International Normal Ratio 0.9; PTT 29.8 SEC (22.9-36.1); Prothrombin Time 12.5 SEC (12.0-14.7)
[2019-07-07 20:39] LABS: ALT (SGPT) 8 U/L (8-55); AST (SGOT) 10 U/L (5-34); Albumin 3.7 g/dL (3.5-5.0); Alkaline Phosphatase 62 U/L (40-150); Anion Gap 13 mmol/L (10-20); BUN (Urea Nitrogen) 18 mg/dL (7.0-18.7); Bilirubin, Total 0.2 mg/dL (0.2-1.2); Calc. Creatinine Clearance 0 mL/min (70-130); Calcium 9.4 mg/dL (7.8-10.44); Carbon Dioxide 22 mmol/L (22-29); Chloride 107 mmol/L (98-107); Estimated GFR-MDRD 77; Globulin 3.7 g/dL (2.4-3.5); Glucose 156 mg/dL (70-105); Protein, Total 7.4 g/dL (6.0-8.3); Sodium 138 mmol/L (136-145)
--- NOTE | 2019-07-07 20:39 | CT ---
CT CERVICAL SPINE: Date: 07/07/19 Axial tomograms obtained with multiplanar reconstructions. INDICATION: Fall with injury to neck. FINDINGS: Cervical vertebra maintain normal height and alignment. There are degenerative changes noted with ost eophytes and disc space narrowing at the C4-5 and C5-6 levels. No evidence of fracture. IMPRESSION: No evidence of cervical spine fracture. POS: AGW
== END 2019-07-07 22:31 | disposition home or self-care (01) ==
LOC: ERS 18:59
DX: N12 Tubulo-interstitial nephritis, not specified as acute or chronic (principal); R11.2 Nausea with vomiting, unspecified; R19.7 Diarrhea, unspecified; M06.9 Rheumatoid arthritis, unspecified; M79.7 Fibromyalgia; F31.9 Bipolar disorder, unspecified; J44.9 Chronic obstructive pulmonary disease, unspecified; K21.9 Gastro-esophageal reflux disease without esophagitis; F17.210 Nicotine dependence, cigarettes, uncomplicated
CPT/HCPCS: 36415; 70450; 72125; 80061; 80076; 82947; 83036; 85025; 85610; 85730; 96361; 96374; 96375; J0780; J1200

== ENCOUNTER 2020-01-04 10:53 | Emergency (ER) | payer OTHER ==
[2020-01-04] MEDS ORDERED: Fentanyl 100 MCG/2 ML VIAL ONE (11:50)
--- NOTE | 2020-01-04 13:18 | RAD ---
LEFT HIP 2 VIEWS: Date: 01/04/2020 INDICATION: History of fall with left hip pain. COMPARISON: None. FINDINGS: No displaced fracture is evident. There is mild degenerative arthrosis of the left hip. Visualized as pects of the SI joints and symphysis pubis appear within normal limits. Intrapelvic contents reveal n o acute abnormality. IMPRESSION: No displaced left sided hip fracture. POS: CET
== END 2020-01-04 13:44 | disposition home or self-care (01) ==
LOC: ERS 10:53
DX: M79.10 Myalgia, unspecified site (principal); F41.9 Anxiety disorder, unspecified; F32.9 Major depressive disorder, single episode, unspecified; E11.9 Type 2 diabetes mellitus without complications; I10 Essential (primary) hypertension; Z79.82 Long term (current) use of aspirin; Z79.899 Other long term (current) drug therapy; Z79.4 Long term (current) use of insulin; Z86.73 Personal history of transient ischemic attack (TIA), and cerebral infarction without residual deficits; Z79.891 Long term (current) use of opiate analgesic; Z79.84 Long term (current) use of oral hypoglycemic drugs
CPT/HCPCS: 96372; J3010

== ENCOUNTER 2020-05-25 11:02 | Emergency (ER) | payer OTHER ==
[2020-05-26 12:12] LABS: SARS-CoV-2 MS2 Positive; SARS-CoV-2 N Gene Negative; SARS-CoV-2 S Gene Negative; SARS-CoV-2 orf1ab Negative
== END 2020-05-25 11:44 | disposition home or self-care (01) ==
LOC: ERS 11:02
DX: J02.9 Acute pharyngitis, unspecified (principal); R05 Cough; Z20.828 Contact with and (suspected) exposure to other viral communicable diseases; F41.9 Anxiety disorder, unspecified; F32.9 Major depressive disorder, single episode, unspecified; E11.9 Type 2 diabetes mellitus without complications; I10 Essential (primary) hypertension; Z86.73 Personal history of transient ischemic attack (TIA), and cerebral infarction without residual deficits; Z79.4 Long term (current) use of insulin; Z79.891 Long term (current) use of opiate analgesic; Z79.899 Other long term (current) drug therapy; Z79.82 Long term (current) use of aspirin
CPT/HCPCS: 87635; 99283; U0003

== ENCOUNTER 2020-06-24 21:10 | Emergency (ER) | payer OTHER ==
--- NOTE | 2020-06-24 21:49 | CT ---
CT HEAD WITHOUT CONTRAST: 06/24/20 INDICATIONS: Fall with injury to head. COMPARISON: Comparison made to head CT of 07/07/19. FINDINGS: No evidence of acute hemorrhage or mass. Volume loss in the left cerebellar hemisphere is again noted and appears stable. White matter hypodensity is seen in the periventricular white matter adjacent to the frontal horns mo re prominent on the right. This has been described previously and appears stable. The paranasal sinus es and mastoids appear clear. IMPRESSION: Chronic findings as above which appear stable. No evidence of acute hemorrhage. POS: AGW
[2020-06-24] MEDS ORDERED: Ondansetron ODT 4 MG TAB ONE (21:58)
[2020-06-24] MEDS ORDERED: Acetaminophen 500 MG TAB ONE ×2 (21:58)
== END 2020-06-24 23:50 | disposition home or self-care (01) ==
LOC: ERS 21:10
DX: S00.83XA Contusion of other part of head, initial encounter (principal); E11.9 Type 2 diabetes mellitus without complications; I10 Essential (primary) hypertension; F41.9 Anxiety disorder, unspecified; F32.9 Major depressive disorder, single episode, unspecified; Z86.73 Personal history of transient ischemic attack (TIA), and cerebral infarction without residual deficits; Z79.4 Long term (current) use of insulin; W01.0XXA Fall on same level from slipping, tripping and stumbling without subsequent striking against object, initial encounter; Y93.01 Activity, walking, marching and hiking
CPT/HCPCS: 70450; Q0162

== ENCOUNTER 2020-09-03 00:44 | Emergency (ER) | payer OTHER ==
--- NOTE | 2020-09-03 12:56 | RAD ---
LEFT KNEE 4 VIEWS: HISTORY: Fall earlier today. Cannot move knee. FINDINGS: There are arthritic changes of the knee with tricompartment degenerative changes. There are no signs of fracture or joint effusion. Lateral view is not a true lateral making assessment more difficult. IMPRESSION: Arthritic changes of the knee. No acute injury. POS: OFF
== END 2020-09-03 02:20 | disposition home or self-care (01) ==
LOC: ERS 00:44
DX: M25.562 Pain in left knee (principal); E11.9 Type 2 diabetes mellitus without complications; I10 Essential (primary) hypertension; Z86.73 Personal history of transient ischemic attack (TIA), and cerebral infarction without residual deficits; F41.9 Anxiety disorder, unspecified; F32.9 Major depressive disorder, single episode, unspecified; Z79.84 Long term (current) use of oral hypoglycemic drugs; Z79.82 Long term (current) use of aspirin; Z79.899 Other long term (current) drug therapy; W18.30XA Fall on same level, unspecified, initial encounter; Y92.000 Kitchen of unspecified non-institutional (private) residence as the place of occurrence of the external cause

== ENCOUNTER 2020-10-12 08:43 | Emergency (ER) | payer OTHER ==
[2020-10-12] MEDS ORDERED: Ibuprofen 200 MG TAB ONE (09:15)
== END 2020-10-12 09:44 | disposition home or self-care (01) ==
LOC: ERS 08:43
DX: J02.9 Acute pharyngitis, unspecified (principal); E11.9 Type 2 diabetes mellitus without complications; I10 Essential (primary) hypertension; F41.9 Anxiety disorder, unspecified; F32.9 Major depressive disorder, single episode, unspecified; Z79.899 Other long term (current) drug therapy; Z79.82 Long term (current) use of aspirin; Z79.4 Long term (current) use of insulin; Z86.73 Personal history of transient ischemic attack (TIA), and cerebral infarction without residual deficits
CPT/HCPCS: 87081; 87430; 99283

== ENCOUNTER 2021-01-31 14:24 | Outpatient (CLI) | payer OTHER ==
--- NOTE | 2021-01-31 14:47 | RAD ---
LEFT HUMERUS TWO VIEWS: 01/31/21 HISTORY: Humerus pain more in the upper arm region. There are arthritic changes of the shoulder noted including degenerative change of the AC and glenohu meral joint levels as well as subacromial spur formation. The patient has rotator cuff type symptoms, MRI would be suggested. IMPRESSION: Arthritic changes of the shoulder. POS: JESÚS
--- NOTE | 2021-01-31 14:54 | RAD ---
LEFT SHOULDER 3 VIEWS: HISTORY: Acute left shoulder pain. FINDINGS: Moderate arthritic changes of the shoulder are noted. There is a subacromial spur present. Some mil d arthritic change of the glenohumeral and AC joint. IMPRESSION: Mild to moderate arthritic changes of the shoulder. No acute bony process. POS: JESÚS
== END 2021-01-31 14:25 | disposition home or self-care (01) ==
LOC: BICRAD 14:24
PROVIDERS: ATTEND Family Medicine
DX: M25.512 Pain in left shoulder (principal); M79.622 Pain in left upper arm; M19.012 Primary osteoarthritis, left shoulder

== ENCOUNTER 2021-01-31 14:51 | Outpatient (CLI) | payer OTHER ==
--- NOTE | 2021-01-31 15:26 | MMO ---
Bilateral MAMMO Bilat Screen DDI. CLINICAL HISTORY: Patient is 50 years old and is seen for screening. The patient has no family history of breast cancer. The patient has no personal history of cancer. VIEWS: The views performed were: bilateral craniocaudal and bilateral mediolateral oblique. FILMS COMPARED: The present examination has been compared to prior imaging studies performed at [facility] on 05/22/2012, 06/12/2019 and 06/19/2019. This study has been interpreted with the assistance of computer-aided detection. MAMMOGRAM FINDINGS: There are scattered fibroglandular densities. There are no suspicious masses, suspicious calcifications, or new areas of architectural distortion. IMPRESSION: THERE IS NO MAMMOGRAPHIC EVIDENCE OF MALIGNANCY. A ROUTINE FOLLOW-UP MAMMOGRAM IN 1 YEAR IS RECOMMENDED. ACR BI-RADS Category 1 - Negative MAMMOGRAPHY NOTE: 1. A negative mammogram report should not delay a biopsy if a dominant of clinically suspicious mass is present. 2. Approximately 10% to 15% of breast cancers are not detected by mammography. 3. Adenosis and dense breasts may obscure an underlying neoplasm. Reported by: GABRIELE LOPEZ MD Electonically Signed: [id number]
== END 2021-01-31 14:52 | disposition home or self-care (01) ==
LOC: BICMAMMO 14:51
PROVIDERS: ATTEND Family Medicine
DX: Z12.31 Encounter for screening mammogram for malignant neoplasm of breast (principal)
CPT/HCPCS: 77067

== ENCOUNTER 2021-02-25 12:04 | Observation (INO) | payer OTHER ==
[~2021-02-25 12:04] MED LIST: Iopamidol-370 76% 500 ML 1 ML ONE
[2021-02-25 13:52] LABS: #Basophils 0.1 thou/uL (0.0-0.2); #Eosinphils 0.1 thou/uL (0.0-0.7); #Lymphocytes 2.1 thou/uL (1.20-3.40); #Monocytes 0.4 thou/uL (0.11-0.59); #Neutrophils 5.8 thou/uL (1.40-6.50); %Basophils 0.6 % (0.0-1.0); %Eosinophils 0.9 % (0.0-10.0); %Lymphocytes 25.1 % (21.0-51.0); %Monocytes 4.7 % (0.0-10.0); %Neutrophils 68.6 % (42.0-75.0); Hemoglobin 12.6 g/dL (12.0-16.0); Mean Corpuscular HGB CONC 32.7 g/dL (32.0-36.0); Mean Corpuscular Hemoglobin 29.1 pg (27.0-31.0); Mean Platelet Volume 8.1 fL (7.4-10.4); Platelet Count 301 thou/uL (130-400); RBC Distribution Width 13.6 % (11.5-14.5); Red Blood Cell (RBC) Count 4.34 mill/uL (4.20-5.40); White Blood Cell (WBC) Count 8.4 thou/uL (4.8-10.8)
[2021-02-25 14:05] LABS: ALT (SGPT) 11 U/L (8-55); AST (SGOT) 12 U/L (5-34); Albumin 3.7 g/dL (3.5-5.0); Alkaline Phosphatase 52 U/L (40-110); Anion Gap 15 mmol/L (10-20); BUN (Urea Nitrogen) 17 mg/dL (7.0-18.7); Bilirubin, Total 0.2 mg/dL (0.2-1.2); Calc. Creatinine Clearance 0 mL/min (70-130); Calcium 8.8 mg/dL (7.8-10.44); Carbon Dioxide 18 mmol/L (22-29); Chloride 109 mmol/L (98-107); Glucose 103 mg/dL (70-105); Lipase 32 U/L (8-78); Potassium 4.5 mmol/L (3.5-5.1); Protein, Total 7.7 g/dL (6.0-8.3); Sodium 137 mmol/L (136-145)
[2021-02-25] MEDS ORDERED: Aspirin Chewable 81 MG TAB ONE ×2 (16:31→17:54)
[2021-02-25 16:44] LABS: Bilirubin Negative (Negative); Blood, Urine Negative (Negative); Clarity Clear (Clear); Glucose, Urine (Dipstick) Normal (Negative); Ketone, Urine Negative (Negative); Leukocyte Negative Leu/uL (Negative); Nitrite Negative (Negative); Protein, Urine (Dipstick) 10 mg/dL (Neg-Trace); Specific Gravity, Urine 1.021 (1.002-1.036); Urobilinogen Normal mg/dL (Less than 2)
[2021-02-25] MEDS ORDERED: Acetaminophen 325 MG TAB PO PRN (17:08)
[2021-02-25] MEDS ORDERED: Calcium Carbonate 500 MG ChewTAB PO PRN (17:08)
[2021-02-25] MEDS ORDERED: Bisacodyl 10 MG SUPP PR PRN (17:08)
[2021-02-25] MEDS ORDERED: Ondansetron PF 4 MG/2 ML Vial IVP PRN (17:08)
[2021-02-25] MEDS ORDERED: Loperamide HCl 2 MG CAP PO PRN (17:08)
[2021-02-25] MEDS ORDERED: Guaifenesin DM 100-10/5 ML UDCUP PO PRN (17:08)
[2021-02-25] MEDS ORDERED: Senokot S 8.6-50 MG TAB PO PRN (17:08)
[2021-02-25] MEDS ORDERED: Zolpidem Tartrate 5 MG TAB PO PRN (17:08)
[2021-02-25] MEDS ORDERED: Ondansetron ODT 4 MG TAB PO PRN (17:08)
[2021-02-25 19:17] VITALS: BMI 36.1
[2021-02-25] MEDS ORDERED: HumaLOG 300 UNITS/3 ML VIAL SC PRN ×2 (19:46)
[2021-02-25] MEDS ORDERED: Dextrose 5% in Water 1,000 ML IV PRN (19:46)
[2021-02-25] MEDS ORDERED: Dextrose 50% Abboject 50 ML SYRINGE SLOW IVP PRN (19:46)
[2021-02-25] MEDS ORDERED: Atorvastatin Calcium 40 MG TAB PO SCH (21:00)
[2021-02-25] MEDS: Famotidine 20 MG TAB PO SCH (21:43)
[2021-02-25] MEDS: Lantus 1000 UNITS/10 ML VIAL SC SCH (21:45)
[2021-02-26 04:58] LABS: #Eosinphils 0.1 thou/uL (0.0-0.7); #Lymphocytes 2.9 thou/uL (1.20-3.40); #Monocytes 0.7 thou/uL (0.11-0.59); #Neutrophils 4.6 thou/uL (1.40-6.50); %Basophils 0.3 % (0.0-1.0); %Eosinophils 1.7 % (0.0-10.0); %Lymphocytes 35.1 % (21.0-51.0); %Monocytes 8.2 % (0.0-10.0); %Neutrophils 54.7 % (42.0-75.0); Hemoglobin 12.2 g/dL (12.0-16.0); Mean Corpuscular HGB CONC 32.5 g/dL (32.0-36.0); Mean Corpuscular Hemoglobin 28.8 pg (27.0-31.0); Mean Corpuscular Volume 88.6 fL (78.0-98.0); Mean Platelet Volume 8.2 fL (7.4-10.4); Platelet Count 296 thou/uL (130-400); RBC Distribution Width 13.6 % (11.5-14.5); Red Blood Cell (RBC) Count 4.24 mill/uL (4.20-5.40); White Blood Cell (WBC) Count 8.3 thou/uL (4.8-10.8)
[2021-02-26 07:03] LABS: Anion Gap 16 mmol/L (10-20); BUN (Urea Nitrogen) 16 mg/dL (7.0-18.7); Calc. Creatinine Clearance 122 mL/min (70-130); Calcium 9.1 mg/dL (7.8-10.44); Carbon Dioxide 19 mmol/L (22-29); Cardiac Risk 3.2 (Less than 4.5); Chloride 108 mmol/L (98-107); Cholesterol 149 mg/dl (< 200 Desired); Glucose 91 mg/dL (70-105); HDL Cholesterol 46 mg/dL (>60 Neg Risk); LDL Cholesterol, Calculated 85 mg/dL; Potassium 3.9 mmol/L (3.5-5.1); Sodium 139 mmol/L (136-145); Triglycerides 92 mg/dL (Less than 150)
[2021-02-26 08:58] LABS: SARS-CoV-2 PCR by NAA Not Detected (NotDetected)
[2021-02-26] MEDS ORDERED: Clopidogrel Bisulfate 75 MG TAB PO SCH (09:00)
[2021-02-26] MEDS ORDERED: Enoxaparin Sodium 40 MG/0.4 ML SYRINGE SC SCH (09:00)
[2021-02-26] MEDS ORDERED: Aspirin 81 mg Enteric Coated Tablet PO SCH (09:00)
[2021-02-26] MEDS ORDERED: Lisinopril/Hydrochlorothiazide 20/25 mg Tablet PO SCH (09:00)
[2021-02-26] MEDS: Carvedilol 6.25 MG TAB PO SCH ×2 (09:50→17:19)
[2021-02-26] MEDS: Famotidine 20 MG TAB PO SCH (09:50)
[2021-02-26] MEDS: Lantus 1000 UNITS/10 ML VIAL SC SCH (09:51)
[2021-02-26] MEDS ORDERED: Meclizine HCl 25 MG TAB PO PRN (10:43)
[2021-02-26] MEDS ORDERED: Lorazepam 2 MG/ML VIAL SLOW IVP SCH (10:45)
[2021-02-26 16:01] VITALS: BP 152/77; TEMP 97.9
== END 2021-02-26 18:38 | disposition home or self-care (01) ==
LOC: ERS 12:04 → 2SE 16:55
PROVIDERS: ADMIT Internal Medicine; ATTEND Internal Medicine
DX: R42 Dizziness and giddiness (principal); E11.9 Type 2 diabetes mellitus without complications; I10 Essential (primary) hypertension; E78.5 Hyperlipidemia, unspecified; I65.21 Occlusion and stenosis of right carotid artery; I35.1 Nonrheumatic aortic (valve) insufficiency; F40.240 Claustrophobia; H93.13 Tinnitus, bilateral; E66.9 Obesity, unspecified; Z68.36 Body mass index [BMI] 36.0-36.9, adult; Z86.73 Personal history of transient ischemic attack (TIA), and cerebral infarction without residual deficits; Z79.02 Long term (current) use of antithrombotics/antiplatelets; Z79.82 Long term (current) use of aspirin; Z79.4 Long term (current) use of insulin; Z79.899 Other long term (current) drug therapy; Z88.5 Allergy status to narcotic agent; Z20.822 Contact with and (suspected) exposure to COVID-19
CPT/HCPCS: 36415; 36416; 70450; 70498; 70551; 80048; 80053; 80061; 81003; 83690; 84484; 85025; 87635; 93005; 93306; 96374; G0378; J1815; J2060; Q9967; U0003; U0005

== ENCOUNTER 2021-06-04 10:01 | Emergency (ER) | payer OTHER ==
[2021-06-04] MEDS ORDERED: Ketorolac Tromethamine 30 MG/ML VIAL ONE (12:15)
== END 2021-06-04 12:40 | disposition home or self-care (01) ==
LOC: ERS 10:01
DX: S43.422A Sprain of left rotator cuff capsule, initial encounter (principal); I10 Essential (primary) hypertension; E11.9 Type 2 diabetes mellitus without complications; Z86.73 Personal history of transient ischemic attack (TIA), and cerebral infarction without residual deficits; Z79.4 Long term (current) use of insulin; Z79.82 Long term (current) use of aspirin; Z79.899 Other long term (current) drug therapy; Z79.02 Long term (current) use of antithrombotics/antiplatelets; W01.198A Fall on same level from slipping, tripping and stumbling with subsequent striking against other object, initial encounter
CPT/HCPCS: 96372; J1885

== ENCOUNTER 2022-04-10 08:42 | Outpatient (CLI) | payer OTHER | END 2022-04-10 08:43 | disposition home or self-care (01) | LOC: BICMAMMO 08:42 | PROVIDERS: ATTEND Family Medicine | DX: Z12.31 Encounter for screening mammogram for malignant neoplasm of breast (principal); N64.89 Other specified disorders of breast | CPT/HCPCS: 77067 ==

== ENCOUNTER 2022-04-12 09:17 | Outpatient (CLI) | payer OTHER | END 2022-04-12 09:18 | disposition home or self-care (01) | LOC: BICMAMMO 09:17 | PROVIDERS: ATTEND Family Medicine | DX: R92.8 Other abnormal and inconclusive findings on diagnostic imaging of breast (principal) | CPT/HCPCS: G0279 ==

== ENCOUNTER 2022-05-30 10:40 | Emergency (ER) | payer OTHER ==
[2022-05-30] MEDS ORDERED: Dexameth. Sod Phosp. 10 MG/ML (CHEMO USE ONLY) ONE (12:48)
[2022-05-30] MEDS ORDERED: Ketorolac Tromethamine 30 MG/ML VIAL ONE (12:48)
== END 2022-05-30 13:21 | disposition home or self-care (01) ==
LOC: ERS 10:40
DX: M17.12 Unilateral primary osteoarthritis, left knee (principal); G89.29 Other chronic pain; E11.9 Type 2 diabetes mellitus without complications; I10 Essential (primary) hypertension; Z86.73 Personal history of transient ischemic attack (TIA), and cerebral infarction without residual deficits; Z79.4 Long term (current) use of insulin
CPT/HCPCS: 96372; 99283; J1100; J1885

== ENCOUNTER 2022-09-22 17:39 | Emergency (ER) | payer OTHER ==
[2022-09-22] MEDS ORDERED: Ibuprofen 200 MG TAB ONE (18:47)
== END 2022-09-22 20:06 | disposition home or self-care (01) ==
LOC: ERS 17:39
DX: S80.02XA Contusion of left knee, initial encounter (principal); S40.021A Contusion of right upper arm, initial encounter; E11.9 Type 2 diabetes mellitus without complications; Z79.4 Long term (current) use of insulin; Z79.84 Long term (current) use of oral hypoglycemic drugs; I10 Essential (primary) hypertension; Z79.899 Other long term (current) drug therapy; W18.39XA Other fall on same level, initial encounter

== ENCOUNTER 2023-01-03 09:14 | Emergency (ER) | payer OTHER ==
[2023-01-03] MEDS ORDERED: Diazepam 5 MG TAB ONE (10:13)
[2023-01-03] MEDS ORDERED: Ketorolac Tromethamine 30 MG/ML VIAL ONE (10:13)
== END 2023-01-03 11:46 | disposition home or self-care (01) ==
LOC: ERS 09:14
DX: S16.1XXA Strain of muscle, fascia and tendon at neck level, initial encounter (principal); E11.9 Type 2 diabetes mellitus without complications; I10 Essential (primary) hypertension; V89.2XXA Person injured in unspecified motor-vehicle accident, traffic, initial encounter; Z79.4 Long term (current) use of insulin; Z86.73 Personal history of transient ischemic attack (TIA), and cerebral infarction without residual deficits
CPT/HCPCS: 70450; 72125; 96372; J1885

== ENCOUNTER 2023-02-28 07:31 | Outpatient (CLI) | payer OTHER | END 2023-02-28 07:32 | disposition home or self-care (01) | LOC: TBSIIMAG 07:31 | PROVIDERS: ATTEND Family Medicine | DX: S29.012A Strain of muscle and tendon of back wall of thorax, initial encounter (principal) | CPT/HCPCS: 72146 ==

== ENCOUNTER 2023-07-05 12:36 | Emergency (ER) | payer OTHER ==
[2023-07-05] MEDS ORDERED: Ketorolac Tromethamine 30 MG/ML VIAL ONE (14:35)
== END 2023-07-05 15:15 | disposition home or self-care (01) ==
LOC: ERS 12:36
DX: M25.562 Pain in left knee (principal); E11.9 Type 2 diabetes mellitus without complications; I10 Essential (primary) hypertension; Z86.73 Personal history of transient ischemic attack (TIA), and cerebral infarction without residual deficits; Z79.899 Other long term (current) drug therapy; Z79.82 Long term (current) use of aspirin; Z79.84 Long term (current) use of oral hypoglycemic drugs
CPT/HCPCS: 96372; J1885

== ENCOUNTER 2023-12-03 09:34 | Emergency (ER) | payer BC, OTHER ==
[2023-12-03] MEDS ORDERED: Ketorolac Tromethamine 30 MG (1 mL) VIAL ONE (10:05)
== END 2023-12-03 10:27 | disposition home or self-care (01) ==
LOC: ERS 09:34
DX: G89.29 Other chronic pain (principal); M25.562 Pain in left knee; E11.9 Type 2 diabetes mellitus without complications; I10 Essential (primary) hypertension; Z79.899 Other long term (current) drug therapy; Z79.84 Long term (current) use of oral hypoglycemic drugs; Z86.73 Personal history of transient ischemic attack (TIA), and cerebral infarction without residual deficits; Z79.82 Long term (current) use of aspirin
CPT/HCPCS: 96372; 99282; J1885

== ENCOUNTER 2024-01-05 07:31 | Emergency (ER) | payer BC, OTHER ==
[2024-01-05] MEDS ORDERED: Ondansetron ODT 4 MG TAB ONE (07:57)
[2024-01-05] MEDS ORDERED: Ketorolac Tromethamine 30 MG (1 mL) VIAL ONE (08:45)
== END 2024-01-05 09:50 | disposition home or self-care (01) ==
LOC: ERS 07:31
DX: S06.0X0A Concussion without loss of consciousness, initial encounter (principal); E11.9 Type 2 diabetes mellitus without complications; I10 Essential (primary) hypertension; W18.30XA Fall on same level, unspecified, initial encounter
CPT/HCPCS: 70450; 96372; J1885; Q0162

== ENCOUNTER 2024-09-27 13:16 | Emergency (ER) | payer OTHER ==
[~2024-09-27 13:16] MED LIST changes: -Iopamidol-370 76% 500 ML 1 ML ONE; +Iopamidol-370 76% 500 ML MDV (1 ML CHARGE) ONE
[2024-09-27] MEDS ORDERED: Morphine 4 MG/ML VIAL ONE (13:45)
[2024-09-27] MEDS ORDERED: Ondansetron PF 4 MG/2 ML Vial ONE (13:45)
[2024-09-27 14:11] LABS: #Basophils 0.03 10x3/uL (0.0-0.2); %Basophils 0.4 % (0.0-1.0); %Eosinophils 1.5 % (0.0-10.0); %Lymphocytes 29.9 % (21.0-51.0); %Monocytes 5.8 % (0.0-10.0); %Neutrophils 62.1 % (42.0-75.0); Hemoglobin 10.7 g/dL (12.0-16.0); Mean Corpuscular HGB CONC 30.6 g/dL (32.0-36.0); Mean Corpuscular Hemoglobin 26.2 pg (27.0-31.0); Mean Corpuscular Volume 85.6 fL (78.0-98.0); Mean Platelet Volume 10.5 fL (7.4-10.4); Platelet Count 332 10x3/uL (130-400); RBC Distribution Width 15.1 % (11.5-14.5); Red Blood Cell (RBC) Count 4.09 mill/uL (4.20-5.40)
[2024-09-27 14:36] LABS: ALT (SGPT) 11 U/L (8-55); AST (SGOT) 14 U/L (5-34); Albumin 3.3 g/dL (3.5-5.0); Alkaline Phosphatase 52 U/L (40-110); Anion Gap 15 mmol/L (10-20); BUN (Urea Nitrogen) 15 mg/dL (9.8-20.1); Bilirubin, Total 0.2 mg/dL (0.2-1.2); Calc. Creatinine Clearance 0 mL/min (70-130); Calcium 9.1 mg/dL (7.8-10.44); Carbon Dioxide 19 mmol/L (22-29); Chloride 105 mmol/L (98-107); Estimated GFR 56; Globulin 4.3 g/dL (2.4-3.5); Glucose 221 mg/dL (70-105); Lipase 14 U/L (8-78); Magnesium 1.6 mg/dL (1.6-2.6); Protein, Total 7.6 g/dL (6.0-8.3); Sodium 135 mmol/L (136-145)
[2024-09-27 16:13] LABS: Bacteria/HPF None Seen HPF (None Seen); Bilirubin Negative (Negative); Blood, Urine Negative (Negative); CAUTI Indications for Culture Immunosuppressed; Clarity Clear (Clear); Glucose, Urine (Dipstick) Normal (Negative); Ketone, Urine Negative (Negative); Leukocyte Negative Leu/uL (Negative); Nitrite Negative (Negative); Protein, Urine (Dipstick) 10 mg/dL (Neg-Trace); RBC/HPF 0-3 HPF (0-3); Specific Gravity, Urine 1.028 (1.002-1.036); Urobilinogen Normal mg/dL (Less than 2); WBC/HPF 0-3 HPF (0-3)
[2024-09-27 16:16] LABS: Urine Culture Reflex No No; Urine Culture Reflex Yes Yes
[2024-09-27] MEDS ORDERED: Ketorolac Tromethamine 30 MG (1 mL) VIAL ONE (16:32)
== END 2024-09-27 16:44 | disposition home or self-care (01) ==
LOC: ERS 13:16
DX: R10.13 Epigastric pain (principal); R10.816 Epigastric abdominal tenderness; R10.811 Right upper quadrant abdominal tenderness; R11.0 Nausea; E11.9 Type 2 diabetes mellitus without complications; I10 Essential (primary) hypertension; Z79.4 Long term (current) use of insulin; Z86.73 Personal history of transient ischemic attack (TIA), and cerebral infarction without residual deficits; Z79.899 Other long term (current) drug therapy
CPT/HCPCS: 36415; 71046; 74177; 76705; 80053; 81001; 83690; 83735; 85025; 87086; 96374; 96375; J1885; J2272; J2405; Q9967

== ENCOUNTER 2025-11-12 09:53 | Outpatient (CLI) | payer MEDICAID | END 2025-11-12 09:54 | disposition home or self-care (01) | LOC: ULT 09:53 | PROVIDERS: ATTEND Student in an Organized Health Care Education/Training Program | DX: E04.2 Nontoxic multinodular goiter (principal) | CPT/HCPCS: 76536 ==